=== PATIENT | male | born 1945 | race Caucasian/White ===

== ENCOUNTER → 2018-01-17 | Outpatient (CLI) | payer MEDICARE, OTHER ==
[2018-01-17 10:38] LABS: APPEARANCE,URINE CLEAR; BILIRUBIN,URINE NEGATIVE (NEGATIVE); COLOR,URINE STRAW; GLUCOSE, URINE NEGATIVE (NEGATIVE); KETONES,URINE NEGATIVE (NEGATIVE); LEUKOCYTE ESTERASE,URINE NEGATIVE (NEGATIVE); NITRITE,URINE NEGATIVE (NEGATIVE); PROTEIN,URINE NEGATIVE (NEGATIVE); URINE SPECIFIC GRAVITY 1.005; UROBILINOGEN,URINE NEGATIVE mg/dL (<2.0)
[2018-01-17 10:48] LABS: HEMATOCRIT 39.9 % (37.9-51.0); HEMOGLOBIN 13.3 g/dL (13.5-17.0); MEAN CORPUSCULAR HEMOGLOBIN 31.5 pg (27.0-33.4); MEAN CORPUSCULAR HGB CONC 33.3 g/dL (32.0-36.0); MEAN CORPUSCULAR VOLUME 95 fl (80-97); PLATELET COUNT 395 10^3/uL (150-450); RED BLOOD COUNT 4.21 10^6/uL (4.35-5.55); RED CELL DISTRIBUTION WIDTH 13.9 % (11.5-14.0); WHITE BLOOD COUNT 10.7 10^3/uL (4.0-10.5)
[2018-01-17 10:55] LABS: INTERNATIONAL RATION (INR) 1.21; PROTHROMBIN TIME 15.9 SEC (11.4-15.4)
[2018-01-17 11:09] LABS: ALANINE AMINOTRANSFERASE 23 U/L (21-72); ALBUMIN 4.4 g/dL (3.5-5.0); ALKALINE PHOSPHATASE 51 U/L (38-126); ANION GAP 14 (5-19); ASPARTATE AMINO TRANSFERASE 26 U/L (17-59); BILIRUBIN,DIRECT 0.4 mg/dL (0.0-0.4); BILIRUBIN,TOTAL 0.9 mg/dL (0.2-1.3); BLOOD UREA NITROGEN 20 mg/dL (7-20); CALCIUM 10.5 mg/dL (8.4-10.2); CARBON DIOXIDE 25 mmol/L (22-30); CHLORIDE 104 mmol/L (98-107); CHOLESTEROL 121.04 mg/dL (0-200); GLUCOSE 98 mg/dL (75-110); POTASSIUM 4.6 mmol/L (3.6-5.0); SODIUM 142.7 mmol/L (137-145); TOTAL PROTEIN 7.9 g/dL (6.3-8.2); TRIGLYCERIDES 92 mg/dL (<150)
[2018-01-17 11:20] LABS: DIRECT LDL 59 mg/dL (<100)
[2018-01-20 12:36] LABS: B-TYPE NATRIURETIC PEPTIDE 126.4 pg/mL (0.0-100.0)
== END ==
LOC: OD 09:08
PROVIDERS: ATTEND Internal Medicine Cardiovascular Disease
DX: I48.2 Chronic atrial fibrillation (principal); E78.5 Hyperlipidemia, unspecified; I50.9 Heart failure, unspecified; R06.02 Shortness of breath; Z79.01 Long term (current) use of anticoagulants; Z79.899 Other long term (current) drug therapy
CPT/HCPCS: 36415; 80048; 80061; 80076; 81001; 83735; 83880; 84443; 85027; 85610; 86141

== ENCOUNTER 2018-09-30 07:19 | Day surgery (SDC) | payer MEDICARE, OTHER ==
[~2018-09-30 07:19] MED LIST: KETOROLAC TROMETHAMINE 0.45% 4 DROP/0.4 ML DROPERETTE OD PRN; MIDAZOLAM 2 MG/2 ML INJ ONE
[2018-09-30] MEDS ORDERED: LIDOCAINE 1% INJ-PF (10 MG/ML) 30 ML SDV ONE (07:21)
[2018-09-30] MEDS: CYCLOPENTOLATE 0.2%/PHENYLEPHRINE 1% OPH SOLN 2 ML OD PRN ×3 (07:44→08:04)
[2018-09-30] MEDS: BESIFLOXACIN HCL 0.6% OPH SUSP 5 ML BOTTLE OD PRN ×5 (07:44→08:45)
[2018-09-30] MEDS: TROPICAMIDE 1% OPH SOLN 3 ML OD PRN ×3 (07:44→08:04)
[2018-09-30] MEDS: TETRACAINE HCL 0.5% OPH SOLN 4 ML OD PRN ×3 (07:45→08:25)
[2018-09-30] MEDS: LIDOCAINE 1%/PHENYLEPHRINE 1.5% 1 ML VIAL ONE ×2 (08:30→08:33)
[2018-09-30] MEDS: EPINEPHRINE INJ/PF 1 MG/1 ML AMPULE ONE ×2 (08:31→08:33)
[2018-09-30] MEDS: CHONDR SU A NA/HYALUR INTRAOC KIT (SURGICARE) ONE ×2 (08:31→08:33)
--- NOTE | 2018-10-01 08:32 | [facility] OPERATIVE REPORT E ---
[facility] Operative Report NAME: ANGELO JOSEPH AGE: 73Y DATE OF SURGERY: 09/30/2018 ROOM: PREOPERATIVE DIAGNOSIS: CATARACT, RIGHT EYE. POSTOPERATIVE DIAGNOSIS: CATARACT, RIGHT EYE. OPERATION: Cataract extraction with insertion of an IOL of the right eye. SURGEON: TROY MCDANIELS M.D. ANESTHESIA: Topical. PROCEDURE: After obtaining appropriate consent, the patient's right eye was prepped and draped in sterile fashion as well as the surgeon in a sterile manner and cataract surgery was started. First a paracentesis blade was used to make a side-port incision. Viscoelastic was used to inflate the anterior chamber. Next a 2.4 mm incision was made with a 2.4 mm blade, clear corneal temporally. A continuous capsulorrhexis was made using a cystotome and Utrata forceps. Following this hydrodissection was carried out to make the lens fully loose and mobile and it was rotated 90 degrees. Following this, a qexgmu-oxc-myomavy technique was used to phacoemulsify the lens with a CDE of 13.05. The remaining cortex was removed with irrigation/aspiration. Provisc was instilled into the capsular bag to inflate the bag. A SN60WF, 21.5 diopter lens was placed. The remaining viscoelastic material was removed with irrigation/aspiration. Following this, the incision was found to be watertight. Besivance was instilled into the eye and a protective shield was placed over the eye. The patient returned to the postoperative recovery in stable condition. PROCEDURE: @ DICTATING PHYSICIAN: TROY MCDANIELS M.D. [id number] PHY#: [id number] ID: [id number] JOB#: [id number] ACCT: [id number] cc:TROY MCDANIELS M.D. >
--- NOTE | 2018-10-01 08:32 | [facility] DISCHARGE SUMMARY E ---
[facility] Discharge Summary NAME: ANGELO JOSEPH AGE: 73Y ADMITTED: 09/30/2018 DISCHARGED: 09/30/2018 FINAL DIAGNOSIS: CATARACT, RIGHT EYE. HISTORY/CLINIC COURSE: This is a 73-year-old male who underwent cataract extraction of the right eye without complication, woke up in postoperative recovery in stable condition. He underwent surgery because he was having difficulty seeing small print. Patient is to be on a regular diet. No bending at the waist, no heavy lifting. Patient should use the Besivance, Ilevro, and Durezol at 3 p.m. and 8 p.m., and sleep with a rigid shield. I will see him for 1 day postoperative. DICTATING PHYSICIAN: TROY MCDANIELS M.D. [id number] PHY#: [id number] ID: [id number] JOB#: [id number] ACCT: [id number] cc:TROY MCDANIELS M.D. >
== END 2018-09-30 09:44 | disposition home or self-care (01) ==
LOC: SC 07:19
PROVIDERS: ATTEND Internal Medicine
DX: H25.813 Combined forms of age-related cataract, bilateral (principal); H57.03 Miosis; H43.813 Vitreous degeneration, bilateral; H35.3121 Nonexudative age-related macular degeneration, left eye, early dry stage; I10 Essential (primary) hypertension; E78.00 Pure hypercholesterolemia, unspecified; I48.91 Unspecified atrial fibrillation; Z86.73 Personal history of transient ischemic attack (TIA), and cerebral infarction without residual deficits; Z87.891 Personal history of nicotine dependence; Z79.82 Long term (current) use of aspirin; Z79.899 Other long term (current) drug therapy; Z79.01 Long term (current) use of anticoagulants
CPT/HCPCS: 66984; V2632; J2250; J3490 ×2; A9270; J0171; J2370; 142

== ENCOUNTER 2018-10-23 06:23 | Day surgery (SDC) | payer MEDICARE, OTHER ==
[~2018-10-23 06:23] MED LIST changes: +BUPIVACAINE HCL 0.75% INJ/PF (7.5 MG/1 ML) 10 ML SDV OS PRN; -KETOROLAC TROMETHAMINE 0.45% 4 DROP/0.4 ML DROPERETTE OD PRN; +KETOROLAC TROMETHAMINE 0.45% 4 DROP/0.4 ML DROPERETTE OS PRN; +LIDOCAINE 4% INJ/PF (40 MG/ML) 5 ML AMPUL OS PRN; -MIDAZOLAM 2 MG/2 ML INJ ONE
[2018-10-23] MEDS: TROPICAMIDE 1% OPH SOLN 3 ML OS PRN ×3 (06:46→07:16)
[2018-10-23] MEDS: CYCLOPENTOLATE 0.2%/PHENYLEPHRINE 1% OPH SOLN 2 ML OS PRN ×3 (06:46→07:16)
[2018-10-23] MEDS: BESIFLOXACIN HCL 0.6% OPH SUSP 5 ML BOTTLE OS PRN ×4 (06:47→07:56)
[2018-10-23] MEDS: TETRACAINE HCL 0.5% OPH SOLN 4 ML OS PRN ×3 (06:48→07:31)
[2018-10-23] MEDS ORDERED: LIDOCAINE 1% INJ-PF (10 MG/ML) 30 ML SDV ONE (07:06)
[2018-10-23] MEDS ORDERED: MIDAZOLAM 2 MG/2 ML INJ ONE (07:09)
[2018-10-23] MEDS ORDERED: FENTANYL CITRATE INJ/PF 100 MCG/2 ML AMPUL ONE (07:41)
[2018-10-23] MEDS: EPINEPHRINE INJ/PF 1 MG/1 ML AMPULE ONE ×2 (07:46)
[2018-10-23] MEDS: CHONDR SU A NA/HYALUR INTRAOC KIT (SURGICARE) ONE ×2 (07:46)
[2018-10-23] MEDS: LIDOCAINE 1%/PHENYLEPHRINE 1.5% 1 ML VIAL ONE ×2 (07:46)
[2018-10-23] MEDS: DORZOLAMIDE HCL 2%/TIMOLOL MALEAT 0.5% OPH SOLN 10 ML OS PRN ×2 (07:56)
--- NOTE | 2018-10-23 21:08 | [facility] OPERATIVE REPORT E ---
[facility] Operative Report NAME: ANGELO JOSEPH AGE: 73Y DATE OF SURGERY: 10/23/2018 ROOM: PREOPERATIVE DIAGNOSIS: CATARACT, LEFT EYE. POSTOPERATIVE DIAGNOSIS: CATARACT, LEFT EYE. OPERATION: Cataract extraction with insertion of an IOL of the left eye. SURGEON: TROY MCDANIELS M.D. ANESTHESIA: Topical. PROCEDURE: After obtaining appropriate consent, the patient's left eye was prepped and draped in sterile fashion as well as the surgeon in a sterile manner and cataract surgery was started. First a paracentesis blade was used to make a side-port incision. Viscoelastic was used to inflate the anterior chamber. Next a 2.4 mm incision was made with a 2.4 mm blade, clear corneal temporally. A continuous capsulorrhexis was made using a cystotome and Utrata forceps. Following this hydrodissection was carried out to make the lens fully loose and mobile and it was rotated 90 degrees. Following this, a naqhtr-qcp-oxawdxr technique was used to phacoemulsify the lens with a CDE of 9.06. The remaining cortex was removed with irrigation/aspiration. Provisc was instilled into the capsular bag to inflate the bag. A SN60WF, 21.5 diopter lens was placed. The remaining viscoelastic material was removed with irrigation/aspiration. Following this, the incision was found to be watertight. Besivance was instilled into the eye and a protective shield was placed over the eye. The patient returned to the postoperative recovery in stable condition. DICTATING PHYSICIAN: TROY MCDANIELS M.D. [id number] PHY#: [id number] ID: [id number] JOB#: [id number] ACCT: [id number] cc:TROY MCDANIELS M.D. >
--- NOTE | 2018-10-23 21:32 | [facility] DISCHARGE SUMMARY E ---
[facility] Discharge Summary NAME: ANGELO JOSEPH AGE: 73Y ADMITTED: 10/23/2018 DISCHARGED: HOSPITAL COURSE: This is a 73-year-old patient who underwent cataract extraction of the left eye. FINAL DIAGNOSIS: CATARACT, LEFT EYE. Patient underwent surgery because of having difficulty reading small print. DISCHARGE INSTRUCTIONS: He is to be on a regular diet. No bending at the waist, no heavy lifting. He is to use zymaxid, Durezol and Acular at 3 p.m. and 8 p.m., and sleep with a rigid shield. I will see him, for 1 day postoperative tomorrow. DICTATING PHYSICIAN: TROY MCDANIELS M.D. [id number] PHY#: [id number] ID: [id number] JOB#: [id number] ACCT: [id number] cc:TROY MCDANIELS M.D. > MTDD
== END 2018-10-23 08:37 | disposition home or self-care (01) ==
LOC: SC 06:23
PROVIDERS: ATTEND Internal Medicine
DX: H25.812 Combined forms of age-related cataract, left eye (principal); H57.03 Miosis; Z96.1 Presence of intraocular lens; I10 Essential (primary) hypertension; F17.210 Nicotine dependence, cigarettes, uncomplicated; I48.91 Unspecified atrial fibrillation; Z86.73 Personal history of transient ischemic attack (TIA), and cerebral infarction without residual deficits; Z79.899 Other long term (current) drug therapy; Z79.01 Long term (current) use of anticoagulants; Z79.82 Long term (current) use of aspirin
CPT/HCPCS: 66984; V2632; J2250; J3490 ×2; A9270; J0171; J3010; J2370; 142

== ENCOUNTER 2019-09-02 16:44 | Inpatient (IN) | payer MEDICARE, OTHER ==
[2019-09-02 17:00] LABS: HEMATOCRIT 43.2 % (37.9-51.0); HEMOGLOBIN 14.4 g/dL (13.5-17.0); MEAN CORPUSCULAR HEMOGLOBIN 31.6 pg (27.0-33.4); MEAN CORPUSCULAR HGB CONC 33.4 g/dL (32.0-36.0); MEAN CORPUSCULAR VOLUME 95 fl (80-97); PLATELET COUNT 321 10^3/uL (150-450); RED BLOOD COUNT 4.56 10^6/uL (4.35-5.55); RED CELL DISTRIBUTION WIDTH 12.7 % (11.5-14.0); WHITE BLOOD COUNT 22.1 10^3/uL (4.0-10.5)
[2019-09-02 17:20] LABS: ABSOLUTE LYMPHOCYTES# (MANUAL) 0.9 10^3/uL (0.5-4.7); BASOPHILS % (MANUAL) 0 % (0-2); EOSINOPHILS % (MANUAL) 1 % (0-6); LYMPHOCYTES % (MANUAL) 4 % (13-45); MONOCYTES % (MANUAL) 9 % (3-13); SEGMENTED NEUTROPHILS % (MAN) 86 % (42-78); TOTAL CELLS COUNTED 100
[2019-09-02 17:21] LABS: PLATELET COMMENT ADEQUATE
--- NOTE | 2019-09-02 17:28 | ER Document Report ---
ED Cardiac - General Stated Complaint: CHEST PAIN Time Seen by Provider: 09/02/19 17:14 Primary Care Provider: SHANE GUNN MD [Primary Care Provider] - Follow up as needed Mode of Arrival: Medic Information source: Patient TRAVEL OUTSIDE OF THE [place] IN LAST 30 DAYS: No - HPI Patient complains to provider of: Chest pain, Other - States he feels like he has been beat in his chest with a baseball Was the onset of pain: Gradual Is the pain a: New problem Chest pain location: Substernal Quality of pain: Throbbing Chest pain radiation location: None Severity now: Severe Severity at worst: Severe Chest pain precipitating factors: Patient states he slept well last evening got up this morning in his normal usual state. Patient's chest pain started around noon today while at rest. Denies any palpitations nausea vomiting or sweats he states the pain is stayed right in the center of his chest nonradiating. Patient states he drove to some location and back and by the time he gets got back home his pain was still present so at 3:00 he called the EMS 911 at that time he took 4 baby aspirin's and waited for EMS arrival. EMS noted that his heart rate was in rapid A. fib at the time. Patient was given diltiazem in route. Patient's heart rate is now controlled less than 100 with a A. fib still present. No acute ST changes consistent with any acute STEMI at this time. Associated symptoms: None Exacerbated by: Other - There are no exacerbating signs or symptoms at this time. Relieved by: NTG, Other - Nitroglycerin given by EMS x2 was of some benefit but did not take away his pain completely. Patient states his current pain is 7 out of 10 - Related Data Allergies/Adverse Reactions: No Known Allergies Allergy (Verified 09/30/18 07:46) Past Medical History - Social History Smoking Status: Former Smoker Family History: Reviewed & Not Pertinent - Past Medical History Cardiac Medical History: Reports: Hx Atrial Fibrillation, Hx Hypercholesterolemia, Hx Hypertension Denies: Hx Heart Attack Pulmonary Medical History: Denies: Hx Asthma Neurological Medical History: Denies: Hx Cerebrovascular Accident - SMALL ANEURYSM ON AORTA,MONITOR IT ONCE A YEAR, Hx Seizures GI Medical History: Denies: Hx Hepatitis, Hx Hiatal Hernia, Hx Ulcer Infectious Medical History: Denies: Hx Hepatitis Past Surgical History: Reports: Hx Vascular Surgery - bilat leg stents. Denies: Hx Open Heart Surgery, Hx Pacemaker - Immunizations Hx Diphtheria, Pertussis, Tetanus Vaccination: Yes Physical Exam - Vital signs Vitals: Temp Pulse Resp BP Pulse Ox 98.7 F 98 30 H 143/79 H 98 09/02/19 16:44 09/02/19 16:44 09/02/19 16:44 09/02/19 16:44 09/02/19 16:44 Course - Re-evaluation Re-evalutation: 09/02/19 23:38 Patient reports his chest discomfort is down to a 2 out of 10. - Vital Signs Vital signs: Temp Pulse Resp BP Pulse Ox 98.2 F 98 26 H 158/86 H 97 09/02/19 21:28 09/02/19 16:44 09/02/19 20:30 09/02/19 20:16 09/02/19 20:30 - Laboratory Result Diagrams: 09/02/19 16:05 09/02/19 16:05 Laboratory results interpreted by me: 09/02/19 09/02/19 09/02/19 16:05 16:05 16:05 WBC 22.1 H Seg Neuts % (Manual) 86 H Lymphocytes % (Manual) 4 L Abs Neuts (Manual) 19.0 H Abs Monocytes (Manual) 2.0 H PT Carbon Dioxide 20 L Anion Gap 20 H BUN 26 H Creatinine 1.70 H Est GFR ( Amer) 48 L Est GFR (MDRD) Non-Af 39 L Glucose 191 H Calcium 10.8 H Direct Bilirubin 0.5 H NT-Pro-B Natriuret Pep 498 H Total Protein 9.8 H Albumin 5.3 H Urine Protein Urine Glucose (UA) Urine Ketones Urine Urobilinogen 09/02/19 09/02/19 16:05 20:53 WBC Seg Neuts % (Manual) Lymphocytes % (Manual) Abs Neuts (Manual) Abs Monocytes (Manual) PT 20.0 H Carbon Dioxide Anion Gap BUN Creatinine Est GFR ( Amer) Est GFR (MDRD) Non-Af Glucose Calcium Direct Bilirubin NT-Pro-B Natriuret Pep Total Protein Albumin Urine Protein 30 H Urine Glucose (UA) 50 H Urine Ketones TRACE H Urine Urobilinogen 2.0 H Discharge - Discharge Clinical Impression: Chest pain Qualifiers: Chest pain type: unspecified Qualified Code(s): R07.9 - Chest pain, unspecified COPD (chronic obstructive pulmonary disease) Qualifiers: COPD type: emphysema Disposition: ADMITTED INPATIENT Admitting Provider: Shanice (Hospitalist) Unit Admitted: Telemetry Referrals: SHANE GUNN MD [Primary Care Provider] - Follow up as needed
--- NOTE | 2019-09-02 17:29 | RADIOLOGY REPORT (SQ) ---
EXAM DESCRIPTION: CHEST SINGLE VIEW COMPLETED DATE/TIME: 09/02/2019 5:13 pm REASON FOR STUDY: chest pain COMPARISON: 11/29/2013 EXAM PARAMETERS: NUMBER OF VIEWS: One view. TECHNIQUE: Single frontal radiographic view of the chest acquired. RADIATION DOSE: NA LIMITATIONS: None. FINDINGS: LUNGS AND PLEURA: No opacities, masses or pneumothorax. No pleural effusion. MEDIASTINUM AND HILAR STRUCTURES: No masses. Contour normal. HEART AND VASCULAR STRUCTURES: Mild cardiomegaly, stable BONES: No acute findings. HARDWARE: None in the chest. OTHER: No other significant finding. IMPRESSION: NO ACUTE RADIOGRAPHIC FINDING IN THE CHEST. TECHNICAL DOCUMENTATION: JOB ID: [id number] [employer]- All Rights Reserved Reading location - IP/workstation name: [email or web address]
[2019-09-02] MEDS ORDERED: ONDANSETRON HCL INJ/PF 4 MG/2 ML SDV IV ONE (17:30)
[2019-09-02] MEDS ORDERED: METOPROLOL TARTRATE PF/INJ 5 MG/5 ML SDV IV ONE (17:33)
[2019-09-02] MEDS: MORPHINE SULFATE 10 MG/ML INJ IV PRN ×2 (17:36→22:36)
--- NOTE | 2019-09-02 17:38 | EKG REPORT ---
SEVERITY:- ABNORMAL ECG - ATRIAL FIBRILLATION, V-RATE 69-117 POOR R WAVE PROGRESSION ANTERIOR PRECORDIAL LEADS : Confirmed by: Rex Lopez MD 02-Sep-2019 17:38:05
[2019-09-02 18:57] LABS: ALBUMIN 5.3 g/dL (3.5-5.0); ALKALINE PHOSPHATASE 68 U/L (38-126); ASPARTATE AMINO TRANSFERASE 47 U/L (17-59); BILIRUBIN,DIRECT 0.5 mg/dL (0.0-0.4); BLOOD UREA NITROGEN 26 mg/dL (7-20); CALCIUM 10.8 mg/dL (8.4-10.2); CREATINE KINASE 147 U/L (55-170); GLUCOSE 191 mg/dL (75-110); POTASSIUM 4.3 mmol/L (3.6-5.0); TOTAL PROTEIN 9.8 g/dL (6.3-8.2)
[2019-09-02 19:02] LABS: CARBON DIOXIDE 20 mmol/L (22-30); CHLORIDE 100 mmol/L (98-107)
[2019-09-02 19:09] LABS: CREATINE KINASE MB 2.66 ng/mL (<4.55)
[2019-09-02 19:10] LABS: ANION GAP 20 (5-19); TROPONIN I < 0.012 ng/mL
--- NOTE | 2019-09-02 20:39 | EKG REPORT ---
SEVERITY:- ABNORMAL ECG - ATRIAL FIBRILLATION, V-RATE 68-102 POOR R WAVE PROGRESSION V1-V5. NONSPECIFIC LATERAL ST-T CHANGES : Confirmed by: Rex Lopez MD 02-Sep-2019 20:38:58
[2019-09-02] MEDS ORDERED: CEFTRIAXONE INJ 1000 MG VIAL IV ONE (20:45)
[2019-09-02] MEDS ORDERED: NITROGLYCERIN 5 MG (0.2 MG/HR) PATCH.TD24 TD ONE (20:50)
[2019-09-02] MEDS ORDERED: FUROSEMIDE INJ/PF 20 MG/2 ML SDV IV ONE (20:50)
[2019-09-02] MEDS ORDERED: ALBUTEROL SULFATE HFA (90 MCG/PUFF) 200 PUFF/8.5 GM MDI IH ONE (20:51)
[2019-09-02 21:05] LABS: A TYPE INFLUENZA AG NEGATIVE (NEGATIVE); B INFLUENZA AG NEGATIVE (NEGATIVE)
[2019-09-02 21:20] LABS: APPEARANCE,URINE SLIGHTLY-CLOUDY; BILIRUBIN,URINE NEGATIVE (NEGATIVE); COLOR,URINE YELLOW; GLUCOSE, URINE 50 mg/dL (NEGATIVE); KETONES,URINE TRACE mg/dL (NEGATIVE); LEUKOCYTE ESTERASE,URINE NEGATIVE (NEGATIVE); NITRITE,URINE NEGATIVE (NEGATIVE); PROTEIN,URINE 30 mg/dL (NEGATIVE); URINE SPECIFIC GRAVITY 1.021
[2019-09-02] MEDS ORDERED: DILTIAZEM HCL 60 MG TABLET PO ONE (22:01)
[2019-09-02] MEDS ORDERED: MAG HYDROX/AL HYDROX/SIMETH SUSP 30 ML UDCUP PO PRN (22:41)
[2019-09-02] MEDS ORDERED: MAGNESIUM HYDROXIDE SUSP 30 ML UDCUP PO PRN (22:41)
[2019-09-02] MEDS ORDERED: PROMETHAZINE HCL INJ 25 MG/1 ML VIAL IV PRN (22:41)
[2019-09-02] MEDS ORDERED: ACETAMINOPHEN 325 MG TABLET PO PRN (22:46)
[2019-09-02] MEDS ORDERED: MORPHINE SULFATE 10 MG/ML INJ IV PRN ×3 (22:46)
[2019-09-02 23:08] LABS: INTERNATIONAL RATION (INR) 1.68
[2019-09-02] MEDS ORDERED: PANTOPRAZOLE SODIUM 40 MG VIAL IV ONE (23:15)
[2019-09-03] MEDS: NITROGLYCERIN 2% OINTMENT 1 GM PACKET TP SCH ×4 (00:28→17:48)
[2019-09-03] MEDS: LEVALBUTEROL HCL NEB 0.63 MG/3 ML AMPUL NEB PRN ×3 (01:21→22:21)
[2019-09-03 03:26] LABS: CREATINE KINASE MB 1.95 ng/mL (<4.55)
[2019-09-03 03:30] LABS: TROPONIN I < 0.012 ng/mL
--- NOTE | 2019-09-03 04:48 | PDOC H&P ---
History of Present Illness Admission Date/PCP: 09/02/2019 22:59 SHANE GUNN MD Patient complains of: Chest pain History of Present Illness: ANGELO JOSEPH is a 74 year old male who presented to the emergency room via EMS with acute chest pain. He admits to the sudden onset of severe pain in his central (substernal) chest beginning at noon today while at rest and continuing since that time. The pain is a severe sharp continuous throbbing pressure without radiation. He denies associated or accompanying signs and symptoms. He denies prior similar episodes. He has not identified any aggravating or ameliorating factors for his chest pain. In the emergency room he was found to have an EKG and cardiac enzymes which demonstrated no evidence of acute myocardial ischemia or injury. His chest pain was treated with nitroglycerin and morphine. He was subsequently admitted for further evaluation and treatment on observation status. Past Medical History Cardiac Medical History: Reports: Atrial Fibrillation, Hyperlipidema, Hypertension, Peripheral Vascular Disease, Other - Aortic aneurysm Denies: Myocardial Infarction Pulmonary Medical History: Denies: Asthma, Chronic Obstructive Pulmonary Disease (COPD) EENT Medical History: Denies: Cataracts, Ears - Hearing aids Neurological Medical History: Denies: Hemorrhagic CVA, Ischemic CVA, Seizures Endocrine Medical History: Denies: Diabetes Mellitus Type 1, Diabetes Mellitus Type 2, Hyperthyroidism, Hypothyroidism Renal/ Medical History: Denies: Chronic Kidney Disease, Nephrolithiasis Malignancy Medical History: Reports: None GI Medical History: Denies: Cirrhosis, Crohn's Disease, Gastroesophageal Reflux Disease, Hepatitis, Hiatal Hernia, Peptic Ulcer Disease, Ulcerative Colitis Musculoskeltal Medical History: Denies: Arthritis, Gout Skin Medical History: Denies: Eczema, Psoriasis Psychiatric Medical History: Denies: Alcohol Dependency, Substance Abuse, Tobacco Dependency Traumatic Medical History: Reports: None Hematology: Denies: Anemia, Bleeding Tendencies Infectious Medical History: Reports: None Past Surgical History Past Surgical History: Reports: Vascular Surgery - bilat leg stents Social History Information Source: Patient Lives with: Alone Smoking Status: Former Smoker Electronic Cigarette use?: No Frequency of Alcohol Use: Rare Hx Recreational Drug Use: No Drugs: None Hx Prescription Drug Abuse: No - Advance Directive Resuscitation Status: Full Code Surrogate healthcare decision maker:: Marleen Saldivar Family History Family History: DM, Hypertension. denies: CAD, Malignancy Parental Family History Reviewed: Yes Children Family History Reviewed: No Sibling(s) Family History Reviewed.: Yes Medication/Allergy Home Medications: Amlodipine Besylate [Norvasc 10 mg Tablet] 10 mg PO DAILY 09/02/19 Aspirin [Aspirin 81 mg Chewable Tablet] 81 mg PO DAILY 09/02/19 Atorvastatin Calcium [Lipitor 40 mg Tablet] 40 mg PO DAILY 09/02/19 Fenofibrate Nanocrystallized [Tricor 145 mg Tablet] 145 mg PO DAILY 09/02/19 Telmisartan 80 mg PO DAILY 09/02/19 Warfarin Sodium [Coumadin 2 mg Tablet] 1.25 mg PO DAILY 09/02/19 Allergies/Adverse Reactions: No Known Allergies Allergy (Verified 09/30/18 07:46) Review of Systems Constitutional: ABSENT: chills, fever(s) Eyes: ABSENT: visual disturbances, other - Eye pain Ears: ABSENT: hearing changes, other - Ear pain Nose, Mouth, and Throat: ABSENT: headache(s), mouth pain, sore throat Cardiovascular: PRESENT: as per HPI, chest pain. ABSENT: dyspnea on exertion, edema, orthropnea, palpitations Respiratory: ABSENT: cough, dyspnea Gastrointestinal: ABSENT: abdominal pain, constipation, diarrhea, nausea, vomiting Genitourinary: ABSENT: dysuria, hematuria Musculoskeletal: ABSENT: back pain, joint swelling, muscle weakness Integumentary: ABSENT: pruritus, rash Neurological: ABSENT: confusion, convulsions, focal weakness, memory loss, syncope Psychiatric: ABSENT: anxiety, depression Endocrine: ABSENT: cold intolerance, heat intolerance Hematologic/Lymphatic: ABSENT: easy bleeding, easy bruising Allergic/Immunologic: ABSENT: seasonal rhinorrhea Physical Exam Vital Signs: Temp Pulse Resp BP Pulse Ox 98.2 F 98 26 H 158/86 H 97 09/02/19 21:28 09/02/19 16:44 09/02/19 20:30 09/02/19 20:16 09/02/19 20:30 Intake & Output 08/31/19 09/01/19 09/02/19 23:59 23:59 23:59 Weight 88.904 kg General appearance: PRESENT: cooperative, mild distress - Secondary to chest discomfort Head exam: PRESENT: atraumatic, normocephalic Eye exam: PRESENT: conjunctiva pink. ABSENT: conjunctival injection, scleral icterus Ear exam: PRESENT: normal external ear exam. ABSENT: bleeding, drainage Mouth exam: PRESENT: dry mucosa, neck supple Neck exam: ABSENT: thyromegaly, tracheal deviation Respiratory exam: PRESENT: clear to auscultation rayo, symmetrical, unlabored Cardiovascular exam: PRESENT: irregular rhythm - Irregularly irregular rate and rhythm. ABSENT: clicks, gallop, rubs Pulses: PRESENT: normal radial pulses, normal dorsalis pedis pul Vascular exam: PRESENT: normal capillary refill. ABSENT: pallor GI/Abdominal exam: PRESENT: normal bowel sounds, soft. ABSENT: tenderness Rectal exam: PRESENT: deferred Extremities exam: ABSENT: joint swelling, pedal edema Musculoskeletal exam: ABSENT: deformity, dislocation Neurological exam: PRESENT: alert, oriented to person, oriented to place, oriented to time, oriented to situation, CN II-XII grossly intact. ABSENT: motor sensory deficit Psychiatric exam: PRESENT: appropriate affect, normal mood Skin exam: PRESENT: dry, intact, warm. ABSENT: jaundice, rash, urticaria Results Laboratory Results: 09/02/19 16:05 09/02/19 16:05 09/02/19 09/02/19 09/02/19 16:05 16:05 20:53 WBC 22.1 H RBC 4.56 Hgb 14.4 Hct 43.2 MCV 95 MCH 31.6 MCHC 33.4 RDW 12.7 Plt Count 321 Seg Neutrophils % Not Reportable Sodium 140.3 Potassium 4.3 Chloride 100 Carbon Dioxide 20 L Anion Gap 20 H BUN 26 H Creatinine 1.70 H Est GFR ( Amer) 48 L Glucose 191 H Calcium 10.8 H Total Bilirubin 1.0 AST 47 Alkaline Phosphatase 68 Total Protein 9.8 H Albumin 5.3 H Urine Color YELLOW Urine Appearance SLIGHTLY-CLOUDY Urine pH 5.0 Ur Specific [place] 1.021 Urine Protein 30 H Urine Glucose (UA) 50 H Urine Ketones TRACE H Urine Blood NEGATIVE Urine Nitrite NEGATIVE Ur Leukocyte Esterase NEGATIVE Urine WBC (Auto) 1 Urine RBC (Auto) 0 09/02/19 09/02/19 09/02/19 16:05 16:05 16:05 Creatine Kinase 147 CK-MB (CK-2) 2.66 Troponin I < 0.012 NT-Pro-B Natriuret Pep 498 H 09/02/19 20:25 Creatine Kinase CK-MB (CK-2) Troponin I < 0.012 NT-Pro-B Natriuret Pep Impressions: Chest X-Ray 09/02/19 16:46 IMPRESSION: NO ACUTE RADIOGRAPHIC FINDING IN THE CHEST. Assessment and Plan - Diagnosis (1) Chest pain Qualifiers: Chest pain type: unspecified Qualified Code(s): R07.9 - Chest pain, unspecified Is this a current diagnosis for this admission?: Yes (2) Chronic atrial fibrillation Is this a current diagnosis for this admission?: Yes (3) Chronic anticoagulation Is this a current diagnosis for this admission?: Yes (4) Hypertension Qualifiers: Hypertension type: essential hypertension Qualified Code(s): I10 - Essential (primary) hypertension Is this a current diagnosis for this admission?: Yes (5) Peripheral vascular disease Is this a current diagnosis for this admission?: Yes - Plan Summary Summary: Patient is admitted observation status on telemetry bed where he will receive routine supportive and symptomatic treatment. Serial cardiac enzymes will be obtained and a Cardiolite stress test will be ordered for the morning. Patient's chest pain will be treated with morphine sulfate 2 to 4 mg IV every 2 hours as needed using a sliding scale for pain. He will also receive Nitrol 2% ointment 1 g every 6 hours. Consideration for initiating metoprolol with an IV dosing regiment will be given if needed to control heart rate, blood pressure or pain. Patient will be continued on his usual medications for his chronic medical illnesses where possible and appropriate. He will be instructed to follow-up with Dr. Gunn for further care and evaluation as an outpatient. - Time Time Spent with patient: 25-34 minutes Medications reviewed and adjusted accordingly: Yes Anticipated discharge: Home Within: within 48 hours - Inpatient Certification Based on my medical assessment, after consideration of the patient's comorbidities, presenting symptoms, or acuity I expect that the services needed warrant INPATIENT care.: No I certify that my determination is in accordance with my understanding of Medicare's requirements for reasonable and necessary INPATIENT services [42 CFR 412.3e].: No Medical Necessity: Need For Continuous Telemetry Monitoring, Need for Pain Contr ol, Risk of Complication if Not Cared For in Hospital
[2019-09-03 09:48] LABS: CREATINE KINASE MB 2.67 ng/mL (<4.55)
[2019-09-03 09:57] LABS: TROPONIN I < 0.012 ng/mL
[2019-09-03] MEDS: DOCUSATE SODIUM 100 MG CAPSULE PO SCH ×2 (10:51→17:54)
[2019-09-03] MEDS: PANTOPRAZOLE SODIUM 40 MG VIAL IV SCH ×2 (10:54→22:06)
[2019-09-03 16:00] LABS: TROPONIN I < 0.012 ng/mL
--- NOTE | 2019-09-03 16:28 | PDOC PROGRESS REPORT ---
Subjective Progress Note for:: 09/03/19 Subjective:: The patient appears surprisingly asymptomatic given his elevated white blood cell count and MRSA bacteremia. His breathing is comfortable. Reason For Visit: CHEST PAIN,CHRONIC ATRIAL FIBRILATION, Physical Exam Vital Signs: Temp Pulse Resp BP Pulse Ox 98.0 F 90 20 164/70 H 93 09/03/19 11:36 09/03/19 11:36 09/03/19 11:36 09/03/19 11:36 09/03/19 11:36 Intake & Output 09/02/19 09/03/19 09/04/19 06:59 06:59 06:59 Intake Total 0 120 Output Total 0 Balance 0 120 Weight 83.9 kg General appearance: PRESENT: no acute distress, cooperative, well-developed Head exam: PRESENT: atraumatic, normocephalic Eye exam: PRESENT: conjunctiva pink. ABSENT: scleral icterus Ear exam: PRESENT: normal external ear exam. ABSENT: bleeding, drainage Mouth exam: PRESENT: dry mucosa, tongue midline Teeth exam: PRESENT: poor dentation Respiratory exam: PRESENT: clear to auscultation rayo, symmetrical, unlabored. ABSENT: rales, rhonchi, tachypnea, wheezes Cardiovascular exam: PRESENT: irregular rhythm GI/Abdominal exam: PRESENT: normal bowel sounds, soft. ABSENT: distended, tenderness Extremities exam: ABSENT: pedal edema Musculoskeletal exam: PRESENT: ambulatory, normal inspection. ABSENT: deformity Neurological exam: PRESENT: alert, awake, oriented to person, oriented to place, oriented to time, oriented to situation, CN II-XII grossly intact Psychiatric exam: PRESENT: appropriate affect. ABSENT: agitated, anxious Focused psych exam: ABSENT: delusional, restlessness Skin exam: PRESENT: dry, normal color, warm. ABSENT: rash Results Laboratory Results: 09/02/19 16:05 09/02/19 16:05 09/02/19 09/02/19 09/02/19 16:05 16:05 20:53 WBC 22.1 H RBC 4.56 Hgb 14.4 Hct 43.2 MCV 95 MCH 31.6 MCHC 33.4 RDW 12.7 Plt Count 321 Seg Neutrophils % Not Reportable Sodium 140.3 Potassium 4.3 Chloride 100 Carbon Dioxide 20 L Anion Gap 20 H BUN 26 H Creatinine 1.70 H Est GFR ( Amer) 48 L Glucose 191 H Calcium 10.8 H Magnesium Total Bilirubin 1.0 AST 47 Alkaline Phosphatase 68 Total Protein 9.8 H Albumin 5.3 H Urine Color YELLOW Urine Appearance SLIGHTLY-CLOUDY Urine pH 5.0 Ur Specific [place] 1.021 Urine Protein 30 H Urine Glucose (UA) 50 H Urine Ketones TRACE H Urine Blood NEGATIVE Urine Nitrite NEGATIVE Ur Leukocyte Esterase NEGATIVE Urine WBC (Auto) 1 Urine RBC (Auto) 0 09/03/19 02:44 WBC RBC Hgb Hct MCV MCH MCHC RDW Plt Count Seg Neutrophils % Sodium Potassium Chloride Carbon Dioxide Anion Gap BUN Creatinine Est GFR ( Amer) Glucose Calcium Magnesium 1.7 Total Bilirubin AST Alkaline Phosphatase Total Protein Albumin Urine Color Urine Appearance Urine pH Ur Specific [place] Urine Protein Urine Glucose (UA) Urine Ketones Urine Blood Urine Nitrite Ur Leukocyte Esterase Urine WBC (Auto) Urine RBC (Auto) 09/02/19 20:25 Blood Blood Culture (PCR) - Final Staphylococcus Aureus 09/02/19 09/02/19 09/02/19 16:05 16:05 16:05 Creatine Kinase 147 CK-MB (CK-2) 2.66 Troponin I < 0.012 NT-Pro-B Natriuret Pep 498 H 09/02/19 09/03/19 09/03/19 20:25 02:44 02:44 Creatine Kinase 113 CK-MB (CK-2) 1.95 Troponin I < 0.012 < 0.012 NT-Pro-B Natriuret Pep 09/03/19 09/03/19 09/03/19 08:44 08:44 15:15 Creatine Kinase 161 243 H CK-MB (CK-2) 2.67 Troponin I < 0.012 NT-Pro-B Natriuret Pep 09/03/19 15:15 Creatine Kinase CK-MB (CK-2) 3.90 Troponin I < 0.012 NT-Pro-B Natriuret Pep Impressions: Chest X-Ray 09/02/19 16:46 IMPRESSION: NO ACUTE RADIOGRAPHIC FINDING IN THE CHEST. Assessment and Plan - Diagnosis (1) Chest pain Qualifiers: Chest pain type: unspecified Qualified Code(s): R07.9 - Chest pain, unspecified Is this a current diagnosis for this admission?: Yes Plan: 09/03/2019-the patient states that he is pain-free. We discussed the symptoms. He did not feel it was particularly pleuritic. It was sharp and severe yesterday but not today. We will continue his baseline cardiac medications at this time. It is most likely that chest pain is musculoskeletal. (2) Chronic atrial fibrillation Is this a current diagnosis for this admission?: Yes Plan: 09/03/2019-continue current regimen. His heart rate has been under reasonable control. Continue anticoagulation. (3) Chronic anticoagulation Is this a current diagnosis for this admission?: Yes Plan: 09/03/2019-continue warfarin with target INR 2.0-3.0 (4) Hypertension Qualifiers: Hypertension type: essential hypertension Qualified Code(s): I10 - Esse ntial (primary) hypertension Is this a current diagnosis for this admission?: Yes Plan: 09/03/2019-the patient blood pressures have been elevated. He is currently on amlodipine, losartan and Cardizem. He still occasionally has elevated blood pressure. I will consolidate the diltiazem to extended release dosing and he may need adjustments in his other medications. (5) COPD (chronic obstructive pulmonary disease) Qualifiers: COPD type: emphysema Emphysema type: unspecified Qualified Code(s): J43.9 - Emphysema, unspecified Is this a current diagnosis for this admission?: Yes Plan: 09/03/2019-the breathing is quite comfortable. We did discuss the susceptibility to respiratory infection for patients with COPD. Other than his white blood cell count there is no focal evidence for pneumonia at this time. Will monitor closely. (6) MRSA bacteremia Is this a current diagnosis for this admission?: Yes Plan: 09/03/2019-the laboratory notified me that the patient did have a blood culture positive for methicillin-resistant staph aureus. He will be started on vancomycin. - Plan Summary Summary: Patient is admitted observation status on telemetry bed where he will receive routine supportive and symptomatic treatment. Serial cardiac enzymes will be obtained and a Cardiolite stress test will be ordered for the morning. Patient's chest pain will be treated with morphine sulfate 2 to 4 mg IV every 2 hours as needed using a sliding scale for pain. He will also receive Nitrol 2% ointment 1 g every 6 hours. Consideration for initiating metoprolol with an IV dosing regiment will be given if needed to control heart rate, blood pressure or pain. Patient will be continued on his usual medications for his chronic medical illnesses where possible and appropriate. He will be instructed to follow-up with Dr. Carey for further care and evaluation as an outpatient. - Time Time Spent with patient: 15-24 minutes Medications reviewed and adjusted accordingly: Yes Anticipated discharge: Home
[2019-09-03] MEDS: DILTIAZEM HCL 60 MG TABLET PO SCH (17:48)
[2019-09-03 19:46] LABS: HEMATOCRIT 36.6 % (37.9-51.0); MEAN CORPUSCULAR HEMOGLOBIN 31.7 pg (27.0-33.4); MEAN CORPUSCULAR HGB CONC 33.4 g/dL (32.0-36.0); MEAN CORPUSCULAR VOLUME 95 fl (80-97); PLATELET COUNT 249 10^3/uL (150-450); RED BLOOD COUNT 3.86 10^6/uL (4.35-5.55); RED CELL DISTRIBUTION WIDTH 12.9 % (11.5-14.0); WHITE BLOOD COUNT 20.1 10^3/uL (4.0-10.5)
[2019-09-03 19:50] LABS: HEMOGLOBIN 12.2 g/dL (13.5-17.0)
[2019-09-03] MEDS: WARFARIN SODIUM 2.5 MG TABLET PO SCH (22:06)
[2019-09-04] MEDS: DILTIAZEM HCL 60 MG TABLET PO SCH ×5 (00:01→23:43)
[2019-09-04 03:22] LABS: APPEARANCE,URINE CLEAR; BILIRUBIN,URINE NEGATIVE (NEGATIVE); COLOR,URINE YELLOW; GLUCOSE, URINE NEGATIVE (NEGATIVE); KETONES,URINE NEGATIVE (NEGATIVE); LEUKOCYTE ESTERASE,URINE NEGATIVE (NEGATIVE); NITRITE,URINE NEGATIVE (NEGATIVE); PROTEIN,URINE NEGATIVE (NEGATIVE); URINE SPECIFIC GRAVITY 1.018; UROBILINOGEN,URINE NEGATIVE mg/dL (<2.0)
[2019-09-04] MEDS: NITROGLYCERIN 2% OINTMENT 1 GM PACKET TP SCH ×4 (05:38→17:19)
[2019-09-04] MEDS: LEVALBUTEROL HCL NEB 0.63 MG/3 ML AMPUL NEB PRN ×2 (06:08→10:22)
[2019-09-04 06:11] LABS: INTERNATIONAL RATION (INR) 1.73; PROTHROMBIN TIME 20.5 SEC (11.4-15.4)
[2019-09-04] MEDS ORDERED: VANCOMYCIN HCL 0 MG in DEXTROSE 5%-WATER 250 ML IV NR (09:00)
[2019-09-04] MEDS: ASPIRIN 81 MG TABLET, CHEWABLE PO SCH (09:55)
[2019-09-04] MEDS: DOCUSATE SODIUM 100 MG CAPSULE PO SCH ×2 (09:55→17:06)
[2019-09-04] MEDS: AMLODIPINE BESYLATE 10 MG TABLET PO SCH (09:55)
[2019-09-04] MEDS: ATORVASTATIN CALCIUM 40 MG TABLET PO SCH (09:55)
[2019-09-04] MEDS: PANTOPRAZOLE SODIUM 40 MG VIAL IV SCH ×2 (09:56→21:42)
[2019-09-04] MEDS: FENOFIBRATE NANOCRYSTALLIZED 145 MG TABLET PO SCH (09:56)
[2019-09-04] MEDS: LOSARTAN POTASSIUM 50 MG TABLET PO SCH (09:56)
[2019-09-04] MEDS: CEFTRIAXONE 2 GM/D5W RTU 2 GM/50 ML RTUPB IV SCH (09:56)
[2019-09-04] MEDS ORDERED: VANCOMYCIN HCL 1,500 MG in DEXTROSE 5%-WATER 250 ML IV ONE (10:00)
[2019-09-04] MEDS ORDERED: WARFARIN SODIUM PO SCH (10:00)
--- NOTE | 2019-09-04 16:14 | PDOC PROGRESS REPORT ---
Subjective Progress Note for:: 09/04/19 Subjective:: Patient appears flushed. He is very wheezy. Increased coughing with no sputum production. Today he appears as sick as I would have expected with yesterday's lab results. Reason For Visit: MRSA BLOOD CULTURES Physical Exam Vital Signs: Temp Pulse Resp BP Pulse Ox 98.1 F 91 22 H 143/75 H 93 09/04/19 11:10 09/04/19 14:00 09/04/19 11:10 09/04/19 11:10 09/04/19 11:10 Intake & Output 09/03/19 09/04/19 09/05/19 06:59 06:59 06:59 Intake Total 0 960 300 Output Total 0 Balance 0 960 300 Weight 83.9 kg 83 kg General appearance: PRESENT: cooperative, mild distress, well-developed Head exam: PRESENT: atraumatic, normocephalic Eye exam: PRESENT: conjunctiva pink. ABSENT: scleral icterus Ear exam: PRESENT: normal external ear exam. ABSENT: bleeding, drainage Teeth exam: PRESENT: poor dentation Respiratory exam: PRESENT: prolonged expiratory phas, rhonchi, symmetrical, tachypnea, wheezes - Bilateral, other - Increased work of breathing. ABSENT: rales Cardiovascular exam: PRESENT: RRR, +S1, +S2 GI/Abdominal exam: PRESENT: normal bowel sounds, soft. ABSENT: distended, guarding, tenderness Rectal exam: PRESENT: deferred Extremities exam: ABSENT: pedal edema Musculoskeletal exam: PRESENT: ambulatory, normal inspection Neurological exam: PRESENT: alert, awake, oriented to person, oriented to place, oriented to time, oriented to situation, CN II-XII grossly intact Psychiatric exam: PRESENT: appropriate affect - Reflecting his illness. ABSENT: agitated, anxious Results Laboratory Results: 09/03/19 19:12 09/04/19 10:05 09/03/19 09/04/19 09/04/19 19:12 03:10 10:05 WBC 20.1 H RBC 3.86 L Hgb 12.2 L D Hct 36.6 L MCV 95 MCH 31.7 MCHC 33.4 RDW 12.9 Plt Count 249 Creatinine 2.01 H Est GFR ( Amer) 39 L Urine Color YELLOW Urine Appearance CLEAR Urine pH 5.0 Ur Specific [place] 1.018 Urine Protein NEGATIVE Urine Glucose (UA) NEGATIVE Urine Ketones NEGATIVE Urine Blood NEGATIVE Urine Nitrite NEGATIVE Ur Leukocyte Esterase NEGATIVE Urine WBC (Auto) 1 Urine RBC (Auto) 0 09/02/19 20:25 Blood Blood Culture (PCR) - Final Staphylococcus Aureus 09/02/19 09/02/19 09/02/19 16:05 16:05 16:05 Creatine Kinase 147 CK-MB (CK-2) 2.66 Troponin I < 0.012 NT-Pro-B Natriuret Pep 498 H 09/02/19 09/03/19 09/03/19 20:25 02:44 02:44 Creatine Kinase 113 CK-MB (CK-2) 1.95 Troponin I < 0.012 < 0.012 NT-Pro-B Natriuret Pep 09/03/19 09/03/19 09/03/19 08:44 08:44 15:15 Creatine Kinase 161 243 H CK-MB (CK-2) 2.67 Troponin I < 0.012 NT-Pro-B Natriuret Pep 09/03/19 15:15 Creatine Kinase CK-MB (CK-2) 3.90 Troponin I < 0.012 NT-Pro-B Natriuret Pep Impressions: Chest X-Ray 09/02/19 16:46 IMPRESSION: NO ACUTE RADIOGRAPHIC FINDING IN THE CHEST. Assessment and Plan - Diagnosis (1) Chest pain Qualifiers: Chest pain type: unspecified Qualified Code(s): R07.9 - Chest pain, unspecified Is this a current diagnosis for this admission?: Yes Plan: 09/03/2019-the patient states that he is pain-free. We discussed the symptoms. He did not feel it was particularly pleuritic. It was sharp and severe yesterday but not today. We will continue his baseline cardiac medications at this time. It is most likely that chest pain is musculoskeletal. 09/04/2019-resolved. Continue current cardiac medications (2) Chronic atrial fibrillation Is this a current diagnosis for this admission?: Yes Plan: 09/03/2019-continue current regimen. His heart rate has been under reasonable control. Continue anticoagulation. 09/04/2019-reasonable rate control. Continue current medications. I will consolidate diltiazem to a single long-acting pill for tomorrow morning. (3) Chronic anticoagulation Is this a current diagnosis for this admission?: Yes Plan: 09/03/2019-continue warfarin with target INR 2.0-3.0 09/04/2019-INR still subtherapeutic. Warfarin per protocol. (4) Hypertension Qualifiers: Hypertension type: essential hypertension Qualified Code(s): I10 - Essential (primary) hypertension Is this a current diagnosis for this admission?: Yes Plan: 09/03/2019-the patient blood pressures have been elevated. He is currently on amlodipine, losartan and Cardizem. He still occasionally has elevated blood pressure. I will consolidate the diltiazem to extended release dosing and he may need adjustments in his other medications. 09/04/2019-systolic pressures still higher than desired. We will continue to monitor. He may very well need an increase in his medication regimen. The goal would be systolic pressure at least less than 140. (5) MRSA bacteremia Is this a current diagnosis for this admission?: Yes Plan: 09/03/2019-the laboratory notified me that the patient did have a blood culture positive for methicillin-resistant staph aureus. He will be started on vancomycin. 09/04/2019-vancomycin dosing per pharmacy (6) COPD (chronic obstructive pulmonary disease) Qualifiers: COPD type: emphysema Emphysema type: unspecified Qualified Code(s): J43.9 - Emphysema, unspecified Is this a current diagnosis for this admission?: Yes Plan: 09/03/2019-the breathing is quite comfortable. We did discuss the susceptibility to respiratory infection for patients with COPD. Other than his white blood cell count there is no focal evidence for pneumonia at this time. Will monitor closely. 09/04/2019-the patient is clearly exhibiting increased work of breathing as well as audible wheezing. This clinical picture is more consistent with his elevated white count and there is likely pneumonia causing an exacerbation of his COPD. At this time we will maximize nebulizer treatments. No steroid therapy yet because of the bacteremia however based on his response to therapy steroids may need to be added. (7) Acute on chronic respiratory failure with hypoxemia Is this a current diagnosis for this admission?: Yes Plan: 09/04/2019-since early this morning the patient has required supplemental oxygen and exhibits increased work of breathing. He clearly has developed a respiratory infection and an exacerbation of his chronic obstructive pulmonary disease. We will continue the antibiotics and broaden to cover pneumonia. Aggressive nebulizer treatments as well. (8) Pneumonia Qualifiers: Pneumonia type: due to unspecified organism Laterality: unspecified laterality Lung location: unspecified part of lung Qualified Code(s): J18.9 - Pneumonia, unspecified organism Is this a current diagnosis for this admission?: Yes Plan: 09/04/2019-the patient has diffuse rhonchi and is clearly dyspneic. He has not been able to cough up any sputum. By exam he clearly has pneumonia and this is consistent with his elevated white blood cell count. He does have MRSA bacteremia and so MRSA pneumonia would certainly make sense. We will continue his current antibiotic therapy of vancomycin with the addition of ceftriaxone. Repeat chest x-ray has been ordered for tomorrow. We will recheck his white blood cell count as well. - Plan Summary Summary: Patient is admitted observation status on telemetry bed where he will receive routine supportive and symptomatic treatment. Serial cardiac enzymes will be obtained and a Cardiolite stress test will be ordered for the morning. Patient's chest pain will be treated with morphine sulfate 2 to 4 mg IV every 2 hours as needed using a sliding scale for pain. He will also receive Nitrol 2% ointment 1 g every 6 hours. Consideration for initiating metoprolol with an IV dosing regiment will be given if needed to control heart rate, blood pressure or pain. Patient will be continued on his usual medications for his chronic medical illnesses where possible and appropriate. He will be instructed to follow-up with Dr. Carey for further care and evaluation as an outpatient. - Time Time Spent with patient: 15-24 minutes Medications reviewed and adjusted accordingly: Yes
[2019-09-04] MEDS ORDERED: LEVALBUTEROL HCL NEB 0.63 MG/3 ML AMPUL NEB PRN (16:18)
[2019-09-04] MEDS: NORMAL SALINE 1000 ML 1,000 ML IV PRN (17:18)
--- NOTE | 2019-09-04 18:03 | RADIOLOGY REPORT (SQ) ---
EXAM DESCRIPTION: CHEST SINGLE VIEW COMPLETED DATE/TIME: 09/04/2019 5:52 pm REASON FOR STUDY: Pneumonia COMPARISON: 09/02/2019. FINDINGS: Single-view chest AP portable upright. Mild right basilar subsegmental atelectasis or developing pneumonia. This area was previously clear. TECHNICAL DOCUMENTATION: JOB ID: [id number] Reading location - IP/workstation name: [email or web address]
[2019-09-04] MEDS ORDERED: NITROGLYCERIN 0.4 MG/TAB 25 TAB/BOTTLE SL PRN (19:40)
[2019-09-04] MEDS: IPRATROPIUM BROMIDE 0.02% NEB 0.5 MG/2.5 ML AMPUL NEB SCH (20:53)
[2019-09-04] MEDS: LEVALBUTEROL HCL NEB 1.25 MG/3 ML AMPUL NEB SCH (20:53)
[2019-09-04] MEDS: BUDESONIDE NEB 0.5 MG/2 ML AMPUL NEB SCH (20:53)
[2019-09-04] MEDS: WARFARIN SODIUM 2.5 MG TABLET PO SCH (21:41)
[2019-09-04] MEDS ORDERED: WARFARIN SODIUM 2.5 MG TABLET PO SCH (22:00)
[2019-09-04 22:55] LABS: APPEARANCE,URINE CLEAR; BILIRUBIN,URINE NEGATIVE (NEGATIVE); COLOR,URINE YELLOW; GLUCOSE, URINE NEGATIVE (NEGATIVE); KETONES,URINE NEGATIVE (NEGATIVE); LEUKOCYTE ESTERASE,URINE NEGATIVE (NEGATIVE); NITRITE,URINE NEGATIVE (NEGATIVE); PROTEIN,URINE NEGATIVE (NEGATIVE); URINE SPECIFIC GRAVITY 1.014; UROBILINOGEN,URINE NEGATIVE mg/dL (<2.0)
[2019-09-05] MEDS: NORMAL SALINE 1000 ML 1,000 ML IV PRN ×3 (01:54→23:33)
[2019-09-05] MEDS: LEVALBUTEROL HCL NEB 1.25 MG/3 ML AMPUL NEB SCH ×2 (02:35→08:39)
[2019-09-05] MEDS: IPRATROPIUM BROMIDE 0.02% NEB 0.5 MG/2.5 ML AMPUL NEB SCH ×2 (02:35→08:39)
[2019-09-05] MEDS: DILTIAZEM HCL 60 MG TABLET PO SCH (05:33)
[2019-09-05 06:59] LABS: HEMATOCRIT 30.7 % (37.9-51.0); HEMOGLOBIN 10.3 g/dL (13.5-17.0); MEAN CORPUSCULAR HEMOGLOBIN 31.6 pg (27.0-33.4); MEAN CORPUSCULAR HGB CONC 33.6 g/dL (32.0-36.0); MEAN CORPUSCULAR VOLUME 94 fl (80-97); PLATELET COUNT 229 10^3/uL (150-450); RED BLOOD COUNT 3.27 10^6/uL (4.35-5.55); RED CELL DISTRIBUTION WIDTH 13.1 % (11.5-14.0); WHITE BLOOD COUNT 14.3 10^3/uL (4.0-10.5)
[2019-09-05 07:27] LABS: ANION GAP 15 (5-19); BLOOD UREA NITROGEN 39 mg/dL (7-20); CARBON DIOXIDE 21 mmol/L (22-30); CHLORIDE 102 mmol/L (98-107); GLUCOSE 150 mg/dL (75-110); POTASSIUM 4.3 mmol/L (3.6-5.0)
[2019-09-05 07:29] LABS: INTERNATIONAL RATION (INR) 1.78; PROTHROMBIN TIME 20.9 SEC (11.4-15.4)
[2019-09-05 08:18] LABS: ABSOLUTE LYMPHOCYTES# (MANUAL) 0.9 10^3/uL (0.5-4.7); ABSOLUTE MONOCYTES # (MANUAL) 0.9 10^3/uL (0.1-1.4); BASOPHILS % (MANUAL) 1 % (0-2); EOSINOPHILS % (MANUAL) 0 % (0-6); LYMPHOCYTES % (MANUAL) 6 % (13-45); MONOCYTES % (MANUAL) 6 % (3-13); SEGMENTED NEUTROPHILS % (MAN) 87 % (42-78); TOTAL CELLS COUNTED 100
[2019-09-05 08:19] LABS: PLATELET COMMENT ADEQUATE; RBC MORPHOLOGY COMMENT NORMO-CYTIC/CHROMIC
[2019-09-05] MEDS: BUDESONIDE NEB 0.5 MG/2 ML AMPUL NEB SCH ×2 (08:39→20:51)
[2019-09-05] MEDS: DOCUSATE SODIUM 100 MG CAPSULE PO SCH ×2 (09:25→17:00)
[2019-09-05] MEDS: PANTOPRAZOLE SODIUM 40 MG VIAL IV SCH ×2 (09:31→21:09)
[2019-09-05] MEDS: FENOFIBRATE NANOCRYSTALLIZED 145 MG TABLET PO SCH (09:32)
[2019-09-05] MEDS: LOSARTAN POTASSIUM 50 MG TABLET PO SCH (09:32)
[2019-09-05] MEDS: ATORVASTATIN CALCIUM 40 MG TABLET PO SCH (09:32)
[2019-09-05] MEDS: AMLODIPINE BESYLATE 10 MG TABLET PO SCH (09:34)
[2019-09-05] MEDS: ASPIRIN 81 MG TABLET, CHEWABLE PO SCH (09:34)
[2019-09-05] MEDS: CEFTRIAXONE 2 GM/D5W RTU 2 GM/50 ML RTUPB IV SCH (09:37)
[2019-09-05] MEDS: DILTIAZEM HCL 240 MG CAPSULE.CR PO SCH (09:37)
[2019-09-05 10:25] LABS: ARTERIAL BLOOD BASE EXCESS -4.9 mmol/L; ARTERIAL BLOOD H2CO3 0.83 mmol/L (1.05-1.35); ARTERIAL BLOOD HCO3 17.6 mmol/L (20-24); ARTERIAL BLOOD O2 SATURATION 95.9 % (94-98); ARTERIAL BLOOD PCO2 27.5 mmHg (35-45); ARTERIAL BLOOD PH 7.43 (7.35-7.45); ARTERIAL BLOOD PO2 76.9 mmHg (80-100); ARTERIAL BLOOD TOTAL CO2 18.5 mmol/L (23-27)
[2019-09-05 10:26] LABS: ARTERIAL BLOOD FIO2 4
[2019-09-05] MEDS: VANCOMYCIN HCL 1,000 MG in DEXTROSE 5%-WATER 250 ML IV SCH (11:03)
--- NOTE | 2019-09-05 11:19 | PDOC PROGRESS REPORT ---
Subjective Progress Note for:: 09/05/19 Subjective:: Patient was having significant work of breathing when I walked in this morning. At that time patient was receiving Xopenex nebulizer treatment. He states that his breathing worsened with the treatment. Endorses mild cough. He denies chest pain at the time. Denies fevers chills or wounds. Reason For Visit: MRSA BLOOD CULTURES Physical Exam Vital Signs: Temp Pulse Resp BP Pulse Ox 97.9 F 77 26 H 149/60 H 93 09/05/19 07:59 09/05/19 08:39 09/05/19 08:39 09/05/19 07:59 09/05/19 08:39 Intake & Output 09/04/19 09/05/19 09/06/19 06:59 06:59 06:59 Intake Total 960 1780 Balance 960 1780 Weight 83 kg 83.1 kg General appearance: PRESENT: cooperative, severe distress Neck exam: ABSENT: JVD Respiratory exam: PRESENT: prolonged expiratory phas, symmetrical, tachypnea, wheezes. ABSENT: rales, unlabored Cardiovascular exam: PRESENT: RRR, +S1, +S2. ABSENT: irregular rhythm, tachycardia GI/Abdominal exam: PRESENT: normal bowel sounds, soft. ABSENT: rebound, rigid, tenderness Neurological exam: PRESENT: alert, awake, oriented to person, oriented to place, oriented to time, oriented to situation Results Laboratory Results: 09/05/19 05:33 09/05/19 05:33 09/04/19 09/04/19 09/05/19 10:05 18:40 05:33 WBC 14.3 H RBC 3.27 L Hgb 10.3 L Hct 30.7 L MCV 94 MCH 31.6 MCHC 33.6 RDW 13.1 Plt Count 229 Seg Neutrophils % Not Reportable Carbonic Acid HCO3/H2CO3 Ratio ABG pH ABG pCO2 ABG pO2 ABG HCO3 ABG O2 Saturation ABG Base Excess FiO2 Sodium Potassium Chloride Carbon Dioxide Anion Gap BUN Creatinine 2.01 H Est GFR ( Amer) 39 L Glucose Calcium Magnesium Urine Color YELLOW Urine Appearance CLEAR Urine pH 6.0 Ur Specific [place] 1.014 Urine Protein NEGATIVE Urine Glucose (UA) NEGATIVE Urine Ketones NEGATIVE Urine Blood SMALL H Urine Nitrite NEGATIVE Ur Leukocyte Esterase NEGATIVE Urine WBC (Auto) 0 Urine RBC (Auto) 0 09/05/19 09/05/19 05:33 09:33 WBC RBC Hgb Hct MCV MCH MCHC RDW Plt Count Seg Neutrophils % Carbonic Acid 0.83 L HCO3/H2CO3 Ratio 21:1 ABG pH 7.43 ABG pCO2 27.5 L ABG pO2 76.9 L ABG HCO3 17.6 L ABG O2 Saturation 95.9 ABG Base Excess -4.9 FiO2 4 Sodium 138.1 Potassium 4.3 Chloride 102 Carbon Dioxide 21 L Anion Gap 15 BUN 39 H Creatinine 1.85 H Est GFR ( Amer) 43 L Glucose 150 H Calcium 9.0 Magnesium 2.4 H Urine Color Urine Appearance Urine pH Ur Specific [place] Urine Protein Urine Glucose (UA) Urine Ketones Urine Blood Urine Nitrite Ur Leukocyte Esterase Urine WBC (Auto) Urine RBC (Auto) 09/02/19 20:25 Blood Blood Culture (PCR) - Final Staphylococcus Aureus 09/02/19 20:25 Blood Blood Culture - Final Mrsa (Meth Resis Staph Aureus) 09/02/19 09/02/19 09/02/19 16:05 16:05 16:05 Creatine Kinase 147 CK-MB (CK-2) 2.66 Troponin I < 0.012 NT-Pro-B Natriuret Pep 498 H 09/02/19 09/03/19 09/03/19 20:25 02:44 02:44 Creatine Kinase 113 CK-MB (CK-2) 1.95 Troponin I < 0.012 < 0.012 NT-Pro-B Natriuret Pep 09/03/19 09/03/19 09/03/19 08:44 08:44 15:15 Creatine Kinase 161 243 H CK-MB (CK-2) 2.67 Troponin I < 0.012 NT-Pro-B Natriuret Pep 09/03/19 15:15 Creatine Kinase CK-MB (CK-2) 3.90 Troponin I < 0.012 NT-Pro-B Natriuret Pep Assessment and Plan - Diagnosis (1) Acute on chronic respiratory failure with hypoxemia Is this a current diagnosis for this admission?: Yes Plan: 09/04/2019-since early this morning the patient has required supplemental oxygen and exhibits increased work of breathing. He clearly has developed a respira tory infection and an exacerbation of his chronic obstructive pulmonary disease. We will continue the antibiotics and broaden to cover pneumonia. Aggressive nebulizer treatments as well. 09/05/2019-patient was showing significant work of breathing using accessory muscles when I walked in this morning despite the fact that he was receiving a Xopenex nebulizer An ABG was obtained and patient was placed on BiPAP. Settings for BiPAP were placed at 10/5 as patient could not tolerate higher settings. ABG was obtained which showed normal pH and interestingly low PCO2 levels. Patient was having active significant wheezing at the time and as such I will treat for COPD exacerbation. However his low PCO2 levels may be somewhat indicative of some component of anxiety. I will maintain on BiPAP at this time wean off later today. I will also discontinue Xopenex and try duo nebs instead. (2) COPD with acute exacerbation Is this a current diagnosis for this admission?: Yes Plan: 09/03/2019-the breathing is quite comfortable. We did discuss the susceptibility to respiratory infection for patients with COPD. Other than his white blood cell count there is no focal evidence for pneumonia at this time. Will monitor closely. 09/04/2019-the patient is clearly exhibiting increased work of breathing as well as audible wheezing. This clinical picture is more consistent with his elevated white count and there is likely pneumonia causing an exacerbation of his COPD. At this time we will maximize nebulizer treatments. No steroid therapy yet because of the bacteremia however based on his response to therapy steroids may need to be added. 09/05/2019-continue standing nebulizers. Patient requiring BiPAP this morning but will attempt to wean later today. Will start Solu-Medrol 40 mg every 12 and can de-escalate tomorrow. Incentive spirometer. Continue Pulmicort. (3) MRSA bacteremia Is this a current diagnosis for this admission?: Yes Plan: 09/03/2019-the laboratory notified me that the patient did have a blood culture positive for methicillin-resistant staph aureus. He will be started on vancomycin. 09/04/2019-vancomycin dosing per pharmacy 09/05/2019-repeat blood cultures obtained today. Continue with vancomycin while monitoring vancomycin trough. Will place order for TTE for evaluation of cardiac involvement. (4) Pneumonia Qualifiers: Pneumonia type: due to unspecified organism Laterality: unspecified laterality Lung location: unspecified part of lung Qualified Code(s): J18.9 - Pneumonia, unspecified organism Is this a current diagnosis for this admission?: Yes Plan: 09/04/2019-the patient has diffuse rhonchi and is clearly dyspneic. He has not been able to cough up any sputum. By exam he clearly has pneumonia and this is consistent with his elevated white blood cell count. He does have MRSA bacteremia and so MRSA pneumonia would certainly make sense. We will continue his current antibiotic therapy of vancomycin with the addition of ceftriaxone. Repeat chest x-ray has been ordered for tomorrow. We will recheck his white blood cell count as well. 09/05/2019-continuing vancomycin and ceftriaxone for treatment of bacterial pn [place] in setting of MRSA bacteremia. (5) Chronic atrial fibrillation Is this a current diagnosis for this admission?: Yes Plan: 09/03/2019-continue current regimen. His heart rate has been under reasonable control. Continue anticoagulation. 09/04/2019-reasonable rate control. Continue current medications. I will consolidate diltiazem to a single long-acting pill for tomorrow morning. 09/05/2019-heart rates controlled at the moment. Continue regimen of diltiazem. Continue warfarin. (6) Subtherapeutic international normalized ratio (INR) Is this a current diagnosis for this admission?: Yes Plan: INR goal of 2-3 for A. fib. Still subtherapeutic on warfarin but slowly creeping up. If INR remains subtherapeutic tomorrow, consider increasing dose from home dose of 1.25 mg to 1.75 mg nightly. - Time Time Spent with patient: 25-34 minutes
[2019-09-05] MEDS: METHYLPREDNISOLONE INJ 40 MG/1 ML SDV IV SCH ×2 (11:36→21:09)
[2019-09-05] MEDS ORDERED: IPRATROPIUM/ALBUTEROL 0.5-2.5 MG/3 ML AMPUL NEB SCH (12:00)
[2019-09-05] MEDS: METOPROLOL TARTRATE PF/INJ 5 MG/5 ML SDV IV PRN (12:19)
[2019-09-05] MEDS: IPRATROPIUM/ALBUTEROL 0.5-2.5 MG/3 ML AMPUL NEB SCH ×2 (14:19→20:51)
[2019-09-05] MEDS ORDERED: LOSARTAN POTASSIUM 50 MG TABLET PO ONE (18:00)
[2019-09-05] MEDS: WARFARIN SODIUM 2.5 MG TABLET PO SCH (21:09)
[2019-09-06] MEDS: IPRATROPIUM/ALBUTEROL 0.5-2.5 MG/3 ML AMPUL NEB SCH ×4 (02:31→21:14)
[2019-09-06] MEDS: METOPROLOL TARTRATE PF/INJ 5 MG/5 ML SDV IV PRN ×2 (04:39→17:45)
[2019-09-06 06:20] LABS: INTERNATIONAL RATION (INR) 1.89
[2019-09-06 06:23] LABS: HEMATOCRIT 32.7 % (37.9-51.0); HEMOGLOBIN 10.9 g/dL (13.5-17.0); MEAN CORPUSCULAR HEMOGLOBIN 31.6 pg (27.0-33.4); MEAN CORPUSCULAR HGB CONC 33.3 g/dL (32.0-36.0); MEAN CORPUSCULAR VOLUME 95 fl (80-97); PLATELET COUNT 252 10^3/uL (150-450); RED BLOOD COUNT 3.44 10^6/uL (4.35-5.55); RED CELL DISTRIBUTION WIDTH 13.2 % (11.5-14.0); WHITE BLOOD COUNT 15.2 10^3/uL (4.0-10.5)
[2019-09-06 06:32] LABS: ANION GAP 14 (5-19); BLOOD UREA NITROGEN 36 mg/dL (7-20); CALCIUM 8.9 mg/dL (8.4-10.2); CARBON DIOXIDE 19 mmol/L (22-30); CHLORIDE 105 mmol/L (98-107); GLUCOSE 247 mg/dL (75-110); POTASSIUM 4.4 mmol/L (3.6-5.0)
[2019-09-06] MEDS: BUDESONIDE NEB 0.5 MG/2 ML AMPUL NEB SCH ×2 (07:29→21:14)
[2019-09-06 07:42] LABS: ABSOLUTE LYMPHOCYTES# (MANUAL) 0.3 10^3/uL (0.5-4.7); ABSOLUTE MONOCYTES # (MANUAL) 1.1 10^3/uL (0.1-1.4); BASOPHILS % (MANUAL) 0 % (0-2); EOSINOPHILS % (MANUAL) 0 % (0-6); LYMPHOCYTES % (MANUAL) 2 % (13-45); MONOCYTES % (MANUAL) 7 % (3-13); SEGMENTED NEUTROPHILS % (MAN) 91 % (42-78); TOTAL CELLS COUNTED 100
[2019-09-06 07:44] LABS: PLATELET COMMENT ADEQUATE; TOXIC GRANULATION 1+
[2019-09-06] MEDS: FENOFIBRATE NANOCRYSTALLIZED 145 MG TABLET PO SCH (10:06)
[2019-09-06] MEDS: LOSARTAN POTASSIUM 50 MG TABLET PO SCH (10:06)
[2019-09-06] MEDS: ASPIRIN 81 MG TABLET, CHEWABLE PO SCH (10:07)
[2019-09-06] MEDS: AMLODIPINE BESYLATE 10 MG TABLET PO SCH (10:07)
[2019-09-06] MEDS: ATORVASTATIN CALCIUM 40 MG TABLET PO SCH (10:07)
[2019-09-06] MEDS: CEFTRIAXONE 2 GM/D5W RTU 2 GM/50 ML RTUPB IV SCH (10:08)
[2019-09-06] MEDS: PANTOPRAZOLE SODIUM 40 MG VIAL IV SCH ×2 (10:08→22:01)
[2019-09-06] MEDS: DILTIAZEM HCL 240 MG CAPSULE.CR PO SCH (10:08)
[2019-09-06] MEDS: METHYLPREDNISOLONE INJ 40 MG/1 ML SDV IV SCH ×2 (10:08→22:01)
[2019-09-06] MEDS: DOCUSATE SODIUM 100 MG CAPSULE PO SCH ×2 (10:09→17:08)
[2019-09-06] MEDS: VANCOMYCIN HCL 1,000 MG in DEXTROSE 5%-WATER 250 ML IV SCH (12:12)
--- NOTE | 2019-09-06 14:48 | PDOC PROGRESS REPORT ---
Subjective Progress Note for:: 09/06/19 Subjective:: No adverse events overnight. He said he does not want to use the BiPAP again. He still little dyspneic at rest. No fevers. Reason For Visit: MRSA BLOOD CULTURES Physical Exam Vital Signs: Temp Pulse Resp BP Pulse Ox 97.4 F 98 24 H 150/71 H 94 09/06/19 08:51 09/06/19 08:51 09/06/19 08:51 09/06/19 08:51 09/06/19 08:51 Intake & Output 09/05/19 09/06/19 09/07/19 06:59 06:59 06:59 Intake Total 1780 3260 50 Balance 1780 3260 50 Weight 83.1 kg 83.3 kg General appearance: PRESENT: cooperative, disheveled, mild distress Respiratory exam: PRESENT: accessory muscle use, prolonged expiratory phas, symmetrical, wheezes. ABSENT: chest wall tenderness, crackles, rhonchi, tachypnea, unlabored Cardiovascular exam: PRESENT: RRR, +S1, +S2 Pulses: PRESENT: normal carotid pulses Vascular exam: PRESENT: normal capillary refill GI/Abdominal exam: PRESENT: normal bowel sounds, soft. ABSENT: distended, guarding, rebound, tenderness Extremities exam: ABSENT: clubbing, pedal edema Musculoskeletal exam: PRESENT: normal inspection. ABSENT: deformity Neurological exam: PRESENT: alert, awake, oriented to person, oriented to place, oriented to situation Psychiatric exam: PRESENT: anxious Skin exam: PRESENT: dry, warm Results Laboratory Results: 09/06/19 05:24 09/06/19 05:24 09/06/19 09/06/19 05:24 05:24 WBC 15.2 H RBC 3.44 L Hgb 10.9 L Hct 32.7 L MCV 95 MCH 31.6 MCHC 33.3 RDW 13.2 Plt Count 252 Seg Neutrophils % Not Reportable Sodium 137.6 Potassium 4.4 Chloride 105 Carbon Dioxide 19 L Anion Gap 14 BUN 36 H Creatinine 1.59 H Est GFR ( Amer) 52 L Glucose 247 H Calcium 8.9 09/02/19 20:25 Blood Blood Culture (PCR) - Final Staphylococcus Aureus 09/02/19 20:25 Blood Blood Culture - Final Mrsa (Meth Resis Staph Aureus) 09/02/19 09/02/19 09/02/19 16:05 16:05 16:05 Creatine Kinase 147 CK-MB (CK-2) 2.66 Troponin I < 0.012 NT-Pro-B Natriuret Pep 498 H 09/02/19 09/03/19 09/03/19 20:25 02:44 02:44 Creatine Kinase 113 CK-MB (CK-2) 1.95 Troponin I < 0.012 < 0.012 NT-Pro-B Natriuret Pep 09/03/19 09/03/19 09/03/19 08:44 08:44 15:15 Creatine Kinase 161 243 H CK-MB (CK-2) 2.67 Troponin I < 0.012 NT-Pro-B Natriuret Pep 09/03/19 15:15 Creatine Kinase CK-MB (CK-2) 3.90 Troponin I < 0.012 NT-Pro-B Natriuret Pep Assessment and Plan - Diagnosis (1) Acute on chronic respiratory failure with hypoxemia Is this a current diagnosis for this admission?: Yes Plan: Continue supplemental O2 to maintain SPO2 greater than 90% (2) COPD with acute exacerbation Is this a current diagnosis for this admission?: Yes Plan: Continue steroids, antibiotics, bronchodilators (3) MRSA bacteremia Is this a current diagnosis for this admission?: Yes Plan: Blood cultures were repeated yesterday. Echocardiogram has been ordered. He is on vancomycin. (4) Pneumonia Qualifiers: Pneumonia type: due to unspecified organism Laterality: unspecified laterality Lung location: unspecified part of lung Qualified Code(s): J18.9 - Pneumonia, unspecified organism Is this a current diagnosis for this admission?: Yes Plan: At this time is believed that this may be the source of his bacteremia. Antibiotics as noted above. We have not been able to get a deep sputum specimen. - Time Time Spent with patient: 15-24 minutes
[2019-09-06 18:01] LABS: HEMATOCRIT 33.7 % (37.9-51.0); HEMOGLOBIN 11.2 g/dL (13.5-17.0); MEAN CORPUSCULAR HEMOGLOBIN 31.7 pg (27.0-33.4); MEAN CORPUSCULAR HGB CONC 33.3 g/dL (32.0-36.0); MEAN CORPUSCULAR VOLUME 95 fl (80-97); PLATELET COUNT 297 10^3/uL (150-450); RED BLOOD COUNT 3.55 10^6/uL (4.35-5.55); WHITE BLOOD COUNT 18.8 10^3/uL (4.0-10.5)
[2019-09-06] MEDS: WARFARIN SODIUM 1 MG TABLET PO SCH (22:01)
[2019-09-07] MEDS: IPRATROPIUM/ALBUTEROL 0.5-2.5 MG/3 ML AMPUL NEB SCH ×4 (02:04→19:28)
[2019-09-07] MEDS: BUDESONIDE NEB 0.5 MG/2 ML AMPUL NEB SCH ×2 (07:26→19:28)
[2019-09-07 10:06] LABS: INTERNATIONAL RATION (INR) 2.13; PROTHROMBIN TIME 24.2 SEC (11.4-15.4)
[2019-09-07] MEDS: ATORVASTATIN CALCIUM 40 MG TABLET PO SCH (11:03)
[2019-09-07] MEDS: LOSARTAN POTASSIUM 50 MG TABLET PO SCH (11:03)
[2019-09-07] MEDS: DOCUSATE SODIUM 100 MG CAPSULE PO SCH ×2 (11:03→17:22)
[2019-09-07] MEDS: VANCOMYCIN HCL 1,000 MG in DEXTROSE 5%-WATER 250 ML IV SCH (11:04)
[2019-09-07] MEDS: AMLODIPINE BESYLATE 10 MG TABLET PO SCH (11:04)
[2019-09-07] MEDS: ASPIRIN 81 MG TABLET, CHEWABLE PO SCH (11:04)
[2019-09-07] MEDS: CEFTRIAXONE 2 GM/D5W RTU 2 GM/50 ML RTUPB IV SCH (11:04)
[2019-09-07] MEDS: PANTOPRAZOLE SODIUM 40 MG VIAL IV SCH (11:05)
[2019-09-07] MEDS: METHYLPREDNISOLONE INJ 40 MG/1 ML SDV IV SCH ×2 (11:05→21:50)
[2019-09-07] MEDS: DILTIAZEM HCL 240 MG CAPSULE.CR PO SCH (11:53)
[2019-09-07] MEDS: FENOFIBRATE NANOCRYSTALLIZED 145 MG TABLET PO SCH (11:54)
--- NOTE | 2019-09-07 15:57 | PDOC PROGRESS REPORT ---
Subjective Progress Note for:: 09/07/19 Subjective:: He has not had a productive cough. No adverse events overnight. No new complaints. He says overall he feels better. Reason For Visit: MRSA BLOOD CULTURES Physical Exam Vital Signs: Temp Pulse Resp BP Pulse Ox 97.9 F 103 H 20 159/83 H 97 09/07/19 15:15 09/07/19 15:15 09/07/19 15:15 09/07/19 15:15 09/07/19 15:15 Intake & Output 09/06/19 09/07/19 09/08/19 06:59 06:59 06:59 Intake Total 3260 2580 720 Output Total 200 Balance 3260 2380 720 Weight 83.3 kg 85 kg General appearance: PRESENT: cooperative, disheveled, mild distress Respiratory exam: PRESENT: prolonged expiratory phas, symmetrical. ABSENT: accessory muscle use, chest wall tenderness, crackles, rhonchi, tachypnea, unlabored, wheezes Cardiovascular exam: PRESENT: RRR, +S1, +S2 Pulses: PRESENT: normal carotid pulses Vascular exam: PRESENT: normal capillary refill GI/Abdominal exam: PRESENT: normal bowel sounds, soft. ABSENT: distended, guarding, rebound, tenderness Extremities exam: ABSENT: clubbing, pedal edema Musculoskeletal exam: PRESENT: normal inspection. ABSENT: deformity Neurological exam: PRESENT: alert, awake, oriented to person, oriented to place, oriented to situation Psychiatric exam: PRESENT: anxious Skin exam: PRESENT: dry, warm Results Laboratory Results: 09/06/19 17:45 09/06/19 05:24 09/06/19 17:45 WBC 18.8 H RBC 3.55 L Hgb 11.2 L Hct 33.7 L MCV 95 MCH 31.7 MCHC 33.3 RDW 13.0 Plt Count 297 09/02/19 09/02/19 09/02/19 16:05 16:05 16:05 Creatine Kinase 147 CK-MB (CK-2) 2.66 Troponin I < 0.012 NT-Pro-B Natriuret Pep 498 H 09/02/19 09/03/19 09/03/19 20:25 02:44 02:44 Creatine Kinase 113 CK-MB (CK-2) 1.95 Troponin I < 0.012 < 0.012 NT-Pro-B Natriuret Pep 09/03/19 09/03/19 09/03/19 08:44 08:44 15:15 Creatine Kinase 161 243 H CK-MB (CK-2) 2.67 Troponin I < 0.012 NT-Pro-B Natriuret Pep 09/03/19 15:15 Creatine Kinase CK-MB (CK-2) 3.90 Troponin I < 0.012 NT-Pro-B Natriuret Pep Assessment and Plan - Diagnosis (1) Acute on chronic respiratory failure with hypoxemia Is this a current diagnosis for this admission?: Yes Plan: Continue supplemental O2 to maintain SPO2 greater than 90% (2) COPD with acute exacerbation Is this a current diagnosis for this admission?: Yes Plan: Continue steroids, antibiotics, bronchodilators. May be able to de-escalate tomorrow. (3) MRSA bacteremia Is this a current diagnosis for this admission?: Yes Plan: Blood cultures were repeated and are pending. Echocardiogram has been ordered. He is on vancomycin. (4) Pneumonia Qualifiers: Pneumonia type: due to unspecified organism Laterality: unspecified laterality Lung location: unspecified part of lung Qualified Code(s): J18.9 - Pneumonia, unspecified organism Is this a current diagnosis for this admission?: Yes Plan: At this time is believed that this may be the source of his bacteremia. Antibiotics as noted above. We have not been able to get a deep sputum specimen. - Time Time Spent with patient: 15-24 minutes
[2019-09-07] MEDS: VANCOMYCIN HCL 750 MG in DEXTROSE 5%-WATER 250 ML IV SCH (17:23)
[2019-09-07] MEDS: WARFARIN SODIUM 1 MG TABLET PO SCH (21:50)
[2019-09-07] MEDS: PANTOPRAZOLE SODIUM 40 MG TABLET.DR PO SCH (21:50)
[2019-09-08] MEDS: IPRATROPIUM/ALBUTEROL 0.5-2.5 MG/3 ML AMPUL NEB SCH ×4 (01:57→19:33)
[2019-09-08] MEDS: VANCOMYCIN HCL 750 MG in DEXTROSE 5%-WATER 250 ML IV SCH ×2 (05:33→17:57)
[2019-09-08 06:13] LABS: INTERNATIONAL RATION (INR) 2.29; PROTHROMBIN TIME 25.6 SEC (11.4-15.4)
[2019-09-08] MEDS: BUDESONIDE NEB 0.5 MG/2 ML AMPUL NEB SCH ×2 (07:47→19:33)
[2019-09-08] MEDS: PANTOPRAZOLE SODIUM 40 MG TABLET.DR PO SCH ×2 (10:18→21:22)
[2019-09-08] MEDS: AMLODIPINE BESYLATE 10 MG TABLET PO SCH (10:18)
[2019-09-08] MEDS: DILTIAZEM HCL 240 MG CAPSULE.CR PO SCH (10:18)
[2019-09-08] MEDS: ASPIRIN 81 MG TABLET, CHEWABLE PO SCH (10:18)
[2019-09-08] MEDS: LOSARTAN POTASSIUM 50 MG TABLET PO SCH (10:18)
[2019-09-08] MEDS: FENOFIBRATE NANOCRYSTALLIZED 145 MG TABLET PO SCH (10:18)
[2019-09-08] MEDS: DOCUSATE SODIUM 100 MG CAPSULE PO SCH ×2 (10:19→17:55)
[2019-09-08] MEDS: METHYLPREDNISOLONE INJ 40 MG/1 ML SDV IV SCH ×2 (10:19→21:22)
[2019-09-08] MEDS: ATORVASTATIN CALCIUM 40 MG TABLET PO SCH (10:19)
[2019-09-08] MEDS: CEFTRIAXONE 2 GM/D5W RTU 2 GM/50 ML RTUPB IV SCH (10:19)
--- NOTE | 2019-09-08 15:52 | PDOC PROGRESS REPORT ---
Subjective Progress Note for:: 09/08/19 Subjective:: No adverse events overnight. No new complaints. Vital signs been stable. He told me that the echocardiogram was done earlier today. He said he was not on oxygen at home. He said he is not been diagnosed with COPD but he smoked for over 60 years. Reason For Visit: MRSA BLOOD CULTURES Physical Exam Vital Signs: Temp Pulse Resp BP Pulse Ox 98 F 77 20 176/70 H 94 09/08/19 15:25 09/08/19 15:25 09/08/19 15:25 09/08/19 15:25 09/08/19 15:25 Intake & Output 09/07/19 09/08/19 09/09/19 06:59 06:59 06:59 Intake Total 2580 2009 730 Output Total 200 Balance 2380 2009 730 Weight 85 kg General appearance: PRESENT: cooperative, disheveled, mild distress Respiratory exam: PRESENT: prolonged expiratory phas, symmetrical. ABSENT: accessory muscle use, chest wall tenderness, crackles, rhonchi, tachypnea, unlabored, wheezes Cardiovascular exam: PRESENT: RRR, +S1, +S2 Pulses: PRESENT: normal carotid pulses Vascular exam: PRESENT: normal capillary refill GI/Abdominal exam: PRESENT: normal bowel sounds, soft. ABSENT: distended, guarding, rebound, tenderness Extremities exam: ABSENT: clubbing, pedal edema Musculoskeletal exam: PRESENT: normal inspection. ABSENT: deformity Neurological exam: PRESENT: alert, awake, oriented to person, oriented to place, oriented to situation Psychiatric exam: PRESENT: anxious Skin exam: PRESENT: dry, warm Results Laboratory Results: 09/06/19 17:45 09/06/19 05:24 09/02/19 21:36 Blood Blood Culture - Final NO GROWTH IN 5 DAYS 09/02/19 09/02/19 09/02/19 16:05 16:05 16:05 Creatine Kinase 147 CK-MB (CK-2) 2.66 Troponin I < 0.012 NT-Pro-B Natriuret Pep 498 H 09/02/19 09/03/19 09/03/19 20:25 02:44 02:44 Creatine Kinase 113 CK-MB (CK-2) 1.95 Troponin I < 0.012 < 0.012 NT-Pro-B Natriuret Pep 09/03/19 09/03/19 09/03/19 08:44 08:44 15:15 Creatine Kinase 161 243 H CK-MB (CK-2) 2.67 Troponin I < 0.012 NT-Pro-B Natriuret Pep 09/03/19 15:15 Creatine Kinase CK-MB (CK-2) 3.90 Troponin I < 0.012 NT-Pro-B Natriuret Pep Assessment and Plan - Diagnosis (1) Acute on chronic respiratory failure with hypoxemia Is this a current diagnosis for this admission?: Yes Plan: Continue supplemental O2 to maintain SPO2 greater than 90%. He may need to go home on oxygen for short period of time because his SPO2 is in the low 90s but he is on about 5 L of oxygen to do it. (2) COPD with acute exacerbation Is this a current diagnosis for this admission?: Yes Plan: Continue steroids, antibiotics, bronchodilators. He will need to be started on some maintenance therapy at discharge will need follow-up with a saddle stitcher. (3) MRSA bacteremia Is this a current diagnosis for this admission?: Yes Plan: Blood cultures were repeated and are pending. Echocardiogram has been ordered. He is on vancomycin. (4) Pneumonia Qualifiers: Pneumonia type: due to unspecified organism Laterality: unspecified laterality Lung location: unspecified part of lung Qualified Code(s): J18.9 - Pneumonia, unspecified organism Is this a current diagnosis for this admission?: Yes Plan: At this time is believed that this may be the source of his bacteremia. Antibiotics as noted above. We have not been able to get a deep sputum specimen. - Time Time Spent with patient: 15-24 minutes
[2019-09-08] MEDS: WARFARIN SODIUM 1 MG TABLET PO SCH (21:22)
--- NOTE | 2019-09-08 22:09 | XCELERA REPORT ---
[address] [address] Transthoracic Echocardiogram Report Name: ANGELO JOSEPH Age: 74 yrs Gender: Male : 1945 Patient Status: Inpatient Patient Location: [address] [place], [place] [address] Study Date: 09/08/2019 09:55 AM Height: 70 in Weight: 185 lb BSA: 2.0 m2 Procedure: A complete two-dimensional transthoracic echocardiogram was performed (2D, M-mode, spectral and color flow Doppler). The study was technically difficult with many images being suboptimal in quality. Reason For Study: MRSA Bacteremia Ordering Physician: TOSIN PAUL Performed By: Brook Carroll Interpretation Summary The left ventricular ejection fraction is within normal limits. There is mild concentric left ventricular hypertrophy. The left ventricle is grossly normal size. Doppler measurements suggest pseudonormalized left ventricular relaxation, which is associated with grade II/IV or mild to moderate diastolic dysfunction Regional wall motion abnormalities cannot be excluded due to limited visualization. Right ventricular function cannot be assessed due to poor image quality. The left atrium is borderline dilated. The right atrium is normal. There is a mild amount of mitral regurgitation There is no mitral valve stenosis. There is a trace amount of aortic regurgitation There is no aortic valve stenosis There is a mild amount of tricuspid regurgitation Right ventricular systolic pressure is estimated to be elevated at 40-50mmHg. There is mild to moderate pulmonary hypertension by echo Small pericardial effusion. There are no echocardiographic or Doppler indications for cardiac tamponade MMode/2D Measurements & Calculations IVSd: 0.99 cm LVIDd: 4.9 cm FS: 40.0 % Ao root diam: 3.2 cm LVIDs: 2.9 cm EDV(Teich): 112.9 ml Ao root area: 8.2 cm2 LVPWd: 1.3 cm ESV(Teich): 33.3 ml EF(Teich): 70.5 % Doppler Measurements & Calculations Ao V2 max: LV V1 max PG: PA V2 max: TR max rafat: 149.0 cm/sec 3.4 mmHg 88.8 cm/sec 331.4 cm/sec Ao max P.9 mmHg LV V1 max: PA max PG: TR max P.9 mmHg 92.5 cm/sec 3.2 mmHg Left Ventricle The left ventricle is grossly normal size. There is mild concentric left ventricular hypertrophy. The left ventricular ejection fraction is within normal limits. Doppler measurements suggest pseudonormalized left ventricular relaxation, which is associated with grade II/IV or mild to moderate diastolic dysfunction. Not all wall segments were well visualized. Regional wall motion abnormalities cannot be excluded due to limited visualization. Right Ventricle The right ventricle is grossly normal size. Right ventricular function cannot be assessed due to poor image quality. Atria The right atrium is normal. The left atrium is borderline dilated. Interarterial septum not well visualized and not well dopplered. Cannot comment on ASD/PFO presence. Mitral Valve The mitral valve leaflets are sclerotic, but show no functional abnormalities. There is no mitral valve stenosis. There is a mild amount of mitral regurgitation. Aortic Valve The aortic valve is not well visualized secondary to technical limitations. There is no aortic valve stenosis. There is a trace amount of aortic regurgitation. Tricuspid Valve The tricuspid valve is not well visualized, but is grossly normal. There is no tricuspid stenosis. There is a mild amount of tricuspid regurgitation. Right ventricular systolic pressure is estimated to be elevated at 40-50mmHg. There is mild to moderate pulmonary hypertension by echo. Pulmonic Valve The pulmonic valve is not well visualized. Great Vessels The aortic root is not well visualized but is probably normal size. The inferior vena cava appeared normal and decreased > 50% with respiration (RAP 5-10 mmHg). Effusions Small pericardial effusion. There are no echocardiographic or Doppler indications for cardiac tamponade. : TOSIN PAUL Shyamal
[2019-09-09] MEDS: IPRATROPIUM/ALBUTEROL 0.5-2.5 MG/3 ML AMPUL NEB SCH ×4 (02:25→20:17)
[2019-09-09] MEDS: VANCOMYCIN HCL 750 MG in DEXTROSE 5%-WATER 250 ML IV SCH (06:05)
[2019-09-09 07:15] LABS: INTERNATIONAL RATION (INR) 2.47; PROTHROMBIN TIME 27.2 SEC (11.4-15.4)
[2019-09-09 07:32] LABS: VANCOMYCIN,TROUGH 12.2 ug/mL (5.0-20.0)
[2019-09-09] MEDS: BUDESONIDE NEB 0.5 MG/2 ML AMPUL NEB SCH ×2 (08:34→20:17)
[2019-09-09] MEDS: METHYLPREDNISOLONE INJ 40 MG/1 ML SDV IV SCH ×2 (10:39→22:35)
[2019-09-09] MEDS: DILTIAZEM HCL 240 MG CAPSULE.CR PO SCH (10:39)
[2019-09-09] MEDS: ATORVASTATIN CALCIUM 40 MG TABLET PO SCH (10:40)
[2019-09-09] MEDS: LOSARTAN POTASSIUM 50 MG TABLET PO SCH (10:40)
[2019-09-09] MEDS: PANTOPRAZOLE SODIUM 40 MG TABLET.DR PO SCH ×2 (10:40→22:33)
[2019-09-09] MEDS: FENOFIBRATE NANOCRYSTALLIZED 145 MG TABLET PO SCH (10:40)
[2019-09-09] MEDS: DOCUSATE SODIUM 100 MG CAPSULE PO SCH ×2 (10:40→18:42)
[2019-09-09] MEDS: ASPIRIN 81 MG TABLET, CHEWABLE PO SCH (10:40)
[2019-09-09] MEDS: AMLODIPINE BESYLATE 10 MG TABLET PO SCH (10:40)
[2019-09-09] MEDS: CEFTRIAXONE 2 GM/D5W RTU 2 GM/50 ML RTUPB IV SCH (10:45)
--- NOTE | 2019-09-09 14:53 | RADIOLOGY REPORT (SQ) ---
EXAM DESCRIPTION: PICC INSERTION; U/S GUIDE FOR VASCULAR ACCESS; FLUORO/CV PLACEMENT COMPLETED DATE/TIME: 09/09/2019 1:30 pm REASON FOR STUDY: iv access; IV ACCESS I48.20 CHRONIC ATRIAL FIBRILLATION, UNSPECIFIED COMPARISON: None. FLUOROSCOPY TIME: 59 seconds 3 images saved to PACS. TECHNIQUE: Fluoroscopic and ultrasound guided PICC placement. LIMITATIONS: None. PROCEDURE: After written consent and assessment were obtained, the patient was brought into the fluo roscopy room and placed supine on the table. Ultrasound evaluation of potential access sites were per formed. After successfully identifying a patent basilic vein in the left upper extremity, the upper a rm was prepped and draped in a sterile fashion along with the ultrasound probe. The entry site was an esthetized with 1% lidocaine. A 21 gauge 7 cm needle was advanced through the skin and into the basil ic vein under live ultrasound guidance. An ultrasound image was saved to PACS confirming access site . A .018 guide wire was then inserted through the needle and into the venous system. The needle was then removed and an 11 blade scalpel was used to make a 1cm skin incision. A 5 fr peel-away sheath w as advanced over the wire and into the venous system. A measurement was then made using the existing wire and live fluoroscopic guidance. The wire was then removed and trimmed. The PICC was advanced thr ough the peel-away sheath and into the venous system. The peel-away sheath was removed and the cathet er was adhered to the patients arm with a stat lock. The catheter was then aspirated and flushed and a sterile bandage was placed over the access site. A fluoroscopic spot image was saved to PACS confi rming the catheter tip within the SVC. IMPRESSION: SUCCESSFUL PLACEMENT OF A 5 FR DUAL LUMEN 40 CM PICC IN THE LEFT BASILIC VEIN. COMMENT: Patient medication list reviewed: Yes- Quality ID# [id number]:Eligible professional attests to doc umenting in the medical record they obtained, updated, or reviewed the patient's current medications. . Quality ID 145: Final reports for procedures using fluoroscopy that document radiation exposure jonah torsten, or exposure time and number of fluorographic images (if radiation exposure indices are not avail able) Quality ID #76: The patient was prepped and draped using maximum sterile barrier technique including cap, mask, sterile gown, sterile gloves, a large sterile sheet, hand hygiene, and 2% Chlorhexidine fo r cutaneous antisepsis. When ultrasound is used, sterile ultrasound techniques are followed requiring sterile gel and sterile probes. TECHNICAL DOCUMENTATION: JOB ID: [id number] [employer]- All Rights Reserved rev-02/07 Reading location - IP/workstation name: [email or web address] [id number]
--- NOTE | 2019-09-09 17:19 | PDOC PROGRESS REPORT ---
Subjective Progress Note for:: 09/09/19 Subjective:: No adverse events overnight. His oxygen has been turned down to 4 L today and has been pretty comfortable on that. No fevers. No cough today. Reason For Visit: MRSA BLOOD CULTURES Physical Exam Vital Signs: Temp Pulse Resp BP Pulse Ox 97.5 F 94 20 187/89 H 98 09/09/19 15:36 09/09/19 15:36 09/09/19 15:36 09/09/19 15:36 09/09/19 15:36 Intake & Output 09/08/19 09/09/19 09/10/19 06:59 06:59 06:59 Intake Total 2009 1510 1010 Balance 2009 1510 1010 Weight 83.8 kg General appearance: PRESENT: cooperative, disheveled, mild distress Respiratory exam: PRESENT: prolonged expiratory phas, symmetrical. ABSENT: accessory muscle use, chest wall tenderness, crackles, rhonchi, tachypnea, unlabored, wheezes Cardiovascular exam: PRESENT: RRR, +S1, +S2 Pulses: PRESENT: normal carotid pulses Vascular exam: PRESENT: normal capillary refill GI/Abdominal exam: PRESENT: normal bowel sounds, soft. ABSENT: distended, guarding, rebound, tenderness Extremities exam: ABSENT: clubbing, pedal edema Musculoskeletal exam: PRESENT: normal inspection. ABSENT: deformity Neurological exam: PRESENT: alert, awake, oriented to person, oriented to place, oriented to situation Psychiatric exam: PRESENT: anxious Skin exam: PRESENT: dry, warm Results Laboratory Results: 09/06/19 17:45 09/06/19 05:24 09/02/19 09/02/19 09/02/19 16:05 16:05 16:05 Creatine Kinase 147 CK-MB (CK-2) 2.66 Troponin I < 0.012 NT-Pro-B Natriuret Pep 498 H 09/02/19 09/03/19 09/03/19 20:25 02:44 02:44 Creatine Kinase 113 CK-MB (CK-2) 1.95 Troponin I < 0.012 < 0.012 NT-Pro-B Natriuret Pep 09/03/19 09/03/19 09/03/19 08:44 08:44 15:15 Creatine Kinase 161 243 H CK-MB (CK-2) 2.67 Troponin I < 0.012 NT-Pro-B Natriuret Pep 09/03/19 15:15 Creatine Kinase CK-MB (CK-2) 3.90 Troponin I < 0.012 NT-Pro-B Natriuret Pep Impressions: Guidance Fluoroscopy 09/09/19 00:00 IMPRESSION: SUCCESSFUL PLACEMENT OF A 5 FR DUAL LUMEN 40 CM PICC IN THE LEFT BASILIC VEIN. Interventional Vascular Procedure 09/09/19 00:00 IMPRESSION: SUCCESSFUL PLACEMENT OF A 5 FR DUAL LUMEN 40 CM PICC IN THE LEFT BASILIC VEIN. PICC Line Insertion 09/09/19 00:00 IMPRESSION: SUCCESSFUL PLACEMENT OF A 5 FR DUAL LUMEN 40 CM PICC IN THE LEFT BASILIC VEIN. Assessment and Plan - Diagnosis (1) Acute on chronic respiratory failure with hypoxemia Is this a current diagnosis for this admission?: Yes Plan: Currently stable on 4 L per nasal cannula, anticipate he will need to be discharged home with oxygen (2) COPD with acute exacerbation Is this a current diagnosis for this admission?: Yes Plan: Continue steroids, antibiotics, bronchodilators. He will need to be started on some maintenance therapy at discharge will need follow-up with a certified dietary manager. He will probably be able to continue a course of prednisone at home, and will make sure he has a nebulizer. (3) MRSA bacteremia Is this a current diagnosis for this admission?: Yes Plan: For getting him a PICC line and are going to set him up with vancomycin at home, with a stop date of September 18. (4) Pneumonia Qualifiers: Pneumonia type: due to unspecified organism Laterality: unspecified laterality Lung location: unspecified part of lung Qualified Code(s): J18.9 - Pneumonia, unspecified organism Is this a current diagnosis for this admission?: Yes Plan: At this time is believed that this may be the source of his bacteremia. Antibiotics as noted above. We have not been able to get a deep sputum spe cimen. - Time Time Spent with patient: 15-24 minutes
[2019-09-09 18:11] LABS: HEMATOCRIT 36.6 % (37.9-51.0); HEMOGLOBIN 11.9 g/dL (13.5-17.0); MEAN CORPUSCULAR HEMOGLOBIN 31.3 pg (27.0-33.4); MEAN CORPUSCULAR HGB CONC 32.6 g/dL (32.0-36.0); MEAN CORPUSCULAR VOLUME 96 fl (80-97); PLATELET COUNT 365 10^3/uL (150-450); RED BLOOD COUNT 3.81 10^6/uL (4.35-5.55); WHITE BLOOD COUNT 17.4 10^3/uL (4.0-10.5)
[2019-09-09] MEDS: VANCOMYCIN HCL 1,000 MG in DEXTROSE 5%-WATER 250 ML IV SCH (18:48)
[2019-09-09] MEDS: METOPROLOL TARTRATE PF/INJ 5 MG/5 ML SDV IV PRN (20:07)
[2019-09-09 21:13] LABS: APPEARANCE,URINE CLEAR; BILIRUBIN,URINE NEGATIVE (NEGATIVE); COLOR,URINE YELLOW; GLUCOSE, URINE >=500 mg/dL (NEGATIVE); KETONES,URINE NEGATIVE (NEGATIVE); LEUKOCYTE ESTERASE,URINE NEGATIVE (NEGATIVE); NITRITE,URINE NEGATIVE (NEGATIVE); PROTEIN,URINE NEGATIVE (NEGATIVE); URINE SPECIFIC GRAVITY 1.022; UROBILINOGEN,URINE NEGATIVE mg/dL (<2.0)
[2019-09-09] MEDS: WARFARIN SODIUM 1 MG TABLET PO SCH (22:33)
[2019-09-10] MEDS: IPRATROPIUM/ALBUTEROL 0.5-2.5 MG/3 ML AMPUL NEB SCH ×3 (02:12→14:08)
[2019-09-10] MEDS: VANCOMYCIN HCL 1,000 MG in DEXTROSE 5%-WATER 250 ML IV SCH ×2 (05:12→17:03)
[2019-09-10] MEDS: BUDESONIDE NEB 0.5 MG/2 ML AMPUL NEB SCH (08:22)
[2019-09-10] MEDS: ATORVASTATIN CALCIUM 40 MG TABLET PO SCH (09:53)
[2019-09-10] MEDS: PANTOPRAZOLE SODIUM 40 MG TABLET.DR PO SCH (09:53)
[2019-09-10] MEDS: DOCUSATE SODIUM 100 MG CAPSULE PO SCH ×2 (09:53→17:01)
[2019-09-10] MEDS: METHYLPREDNISOLONE INJ 40 MG/1 ML SDV IV SCH (09:53)
[2019-09-10] MEDS: FENOFIBRATE NANOCRYSTALLIZED 145 MG TABLET PO SCH (09:53)
[2019-09-10] MEDS: LOSARTAN POTASSIUM 50 MG TABLET PO SCH (09:53)
[2019-09-10] MEDS: ASPIRIN 81 MG TABLET, CHEWABLE PO SCH (09:53)
[2019-09-10] MEDS: AMLODIPINE BESYLATE 10 MG TABLET PO SCH (09:53)
[2019-09-10] MEDS: CEFTRIAXONE 2 GM/D5W RTU 2 GM/50 ML RTUPB IV SCH (09:53)
[2019-09-10] MEDS: DILTIAZEM HCL 240 MG CAPSULE.CR PO SCH (09:54)
--- NOTE | 2019-09-10 10:08 | Progress Note ---
Provider Note Provider Note: [facility]ward[facility] Advice Chart reviewed. Patient is a 74-year-old man with atrial fibrillation, hypertension, PVD, hypercholesterolemia, and aortic aneurysm who was admitted due to chest pain and found with MRSA bacteremia and right basilar pneumonia. Blood cultures from 09/02 had MRSA and negative on 09/03. Chest imaging consistent with pneumoina. He clinically had pneumonia with COPD exacerbation responding to steroids and antibiotics. He was on vancomycin and ceftriaxone. No indication for ceftriaxone. TTE was suboptimal in quality, but negative for vegetations. Patient already cleared the blood cultures and already had a PICC line placed to complete 14 days of antibiotics. Patient's vancomycin trough has been subtherapeutic, should keep trough 15-20 and start counting from negative cultures/adeqaute trough. A plan for discharge has already been made. Please call if any questions. Kaylha Roy MD [facility] [phone]
--- NOTE | 2019-09-10 16:11 | PDOC DISCHARGE SUMMARY ---
Impression - Admit/DC Date/PCP Admission Date/Primary Care Provider: 09/04/19 13:28 SHANE GUNN MD Discharge Date: 09/10/19 - Discharge Diagnosis (1) Acute on chronic respiratory failure with hypoxemia Is this a current diagnosis for this admission?: Yes (2) COPD with acute exacerbation Is this a current diagnosis for this admission?: Yes (3) MRSA bacteremia Is this a current diagnosis for this admission?: Yes (4) Pneumonia Is this a current diagnosis for this admission?: Yes - Additional Information Resuscitation Status: Full Code Discharge Diet: Cardiac, Diabetic Discharge Activity: Activity As Tolerated, Balance Activity w/Rest Referrals: SHANE GUNN MD [Primary Care Provider] - 09/14/19 11:00 am Prescriptions: Diltiazem HCl [Cardizem Cd 240 mg Capsule.cr] 240 mg PO DAILY #30 capsule.cr Prednisone [Deltasone 20 mg Tablet] 40 mg PO DAILY #10 tablet Nebulizer [Nebulizer Machine] 1 each MC Q4HP PRN #1 kit PRN Reason: For Wheezing Albuterol Sulfate [Proventil 0.5% Neb 2.5 mg/0.5 ml Vial.neb] 2.5 mg NEB RTQ4HP PRN #120 vial.neb PRN Reason: For Wheezing Tiotropium [place] [Spiriva Respimat] 2 puff IH DAILY #1 mist.inhal Vancomycin HCl [Vancocin Inj 1000 mg Vial] 1,000 mg IV Q12A #20 vial Home Medications: Amlodipine Besylate [Norvasc 10 mg Tablet] 10 mg PO DAILY 09/02/19 Aspirin [Aspirin 81 mg Chewable Tablet] 81 mg PO DAILY 09/02/19 Atorvastatin Calcium [Lipitor 40 mg Tablet] 40 mg PO DAILY 09/02/19 Fenofibrate Nanocrystallized [Tricor 145 mg Tablet] 145 mg PO DAILY 09/02/19 Telmisartan 80 mg PO DAILY 09/02/19 Warfarin Sodium 1.25 mg PO DAILY@1700 09/03/19 Albuterol Sulfate [Proventil 0.5% Neb 2.5 mg/0.5 ml Vial.neb] 2.5 mg NEB RTQ4HP PRN #120 vial.neb 09/10/19 Diltiazem HCl [Cardizem Cd 240 mg Capsule.cr] 240 mg PO DAILY #30 capsule.cr 09/10/19 Nebulizer [Nebulizer Machine] 1 each MC Q4HP PRN #1 kit 09/10/19 Prednisone [Deltasone 20 mg Tablet] 40 mg PO DAILY #10 tablet 09/10/19 Tiotropium Redbird [Spiriva Respimat] 2 puff IH DAILY #1 mist.inhal 09/10/19 Vancomycin HCl [Vancocin Inj 1000 mg Vial] 1,000 mg IV Q12A #20 vial 09/10/19 History of Present Illiness History of Present Illness: ANGELO JOSEPH is a 74 year old male who presented to the emergency room via EMS with acute chest pain. He admits to the sudden onset of severe pain in his central (substernal) chest beginning at noon today while at rest and continuing since that time. The pain is a severe sharp continuous throbbing pressure without radiation. He denies associated or accompanying signs and symptoms. He denies prior similar episodes. He has not identified any aggravating or ameliorating factors for his chest pain. In the emergency room he was found to have an EKG and cardiac enzymes which demonstrated no evidence of acute myocardial ischemia or injury. His chest pain was treated with nitroglycerin and morphine. He was subsequently admitted for further evaluation and treatment on observation status. Hospital Course Hospital Course: He has not been previously diagnosed with COPD, and so we sent him home with Spiriva and a nebulizer. He also had an impressive oxygen requirement, up to 6 L at one point, but we got him down to about 3 L when he was discharged. He responded well to steroids and nebulizer treatments. He did have 1 of his blood cultures turn positive and it turned out to be MRSA. The other culture was negative. We gave him antibiotics for a few days and repeated the cultures and those have been negative thus far. We got an echocardiogram that did not show evidence of valvular vegetations. We got him a PICC line and the plan is to treat him with IV vancomycin for a total of 14 days, with his stop date being September 18, 2019. At that point, he will go back to his doctor's office in 3 to 5 days to have blood cultures redrawn. If those cultures are negative, he can discontinue his PICC line. His labs and examination were reassuring and he was discharged in stable condition. Physical Exam Vital Signs: Temp Pulse Resp BP Pulse Ox 97.3 F 80 16 146/87 H 98 09/10/19 08:11 12/19/19 14:08 09/10/19 14:08 09/10/19 08:11 09/10/19 08:22 Intake & Output 09/09/19 09/10/19 09/11/19 06:59 06:59 06:59 Intake Total 1510 1800 810 Balance 1510 1800 810 Weight 83.8 kg 82.9 kg General appearance: PRESENT: cooperative, disheveled, mild distress Respiratory exam: PRESENT: prolonged expiratory phas, symmetrical. ABSENT: accessory muscle use, chest wall tenderness, crackles, rhonchi, tachypnea, unlabored, wheezes Cardiovascular exam: PRESENT: RRR, +S1, +S2 Pulses: PRESENT: normal carotid pulses Vascular exam: PRESENT: normal capillary refill GI/Abdominal exam: PRESENT: normal bowel sounds, soft. ABSENT: distended, guarding, rebound, tenderness Extremities exam: ABSENT: clubbing, pedal edema Musculoskeletal exam: PRESENT: normal inspection. ABSENT: deformity Neurological exam: PRESENT: alert, awake, oriented to person, oriented to place, oriented to situation Psychiatric exam: PRESENT: anxious Skin exam: PRESENT: dry, warm Results Laboratory Results: WBC 17.4 10^3/uL (4.0-10.5) H 09/09/19 17:49 RBC 3.81 10^6/uL (4.35-5.55) L 09/09/19 17:49 Hgb 11.9 g/dL (13.5-17.0) L 09/09/19 17:49 Hct 36.6 % (37.9-51.0) L 09/09/19 17:49 MCV 96 fl (80-97) 09/09/19 17:49 MCH 31.3 pg (27.0-33.4) 09/09/19 17:49 MCHC 32.6 g/dL (32.0-36.0) 09/09/19 17:49 RDW 13.0 % (11.5-14.0) 09/09/19 17:49 Plt Count 365 10^3/uL (150-450) 09/09/19 17:49 Lymph % (Auto) Not Reportable 09/06/19 05:24 [place] % (Auto) Not Reportable 09/06/19 05:24 Eos % (Auto) Not Reportable 09/06/19 05:24 Baso % (Auto) Not Reportable 09/06/19 05:24 Absolute Neuts (auto) Not Reportable 09/06/19 05:24 Absolute Lymphs (auto) Not Reportable 09/06/19 05:24 Absolute Monos (auto) Not Reportable 09/06/19 05:24 Absolute Eos (auto) Not Reportable 09/06/19 05:24 Absolute Basos (auto) Not Reportable 09/06/19 05:24 Total Counted 100 09/06/19 05:24 Seg Neutrophils % Not Reportable 09/06/19 05:24 Seg Neuts % (Manual) 91 % (42-78) H 09/06/19 05:24 Lymphocytes % (Manual) 2 % (13-45) L 09/06/19 05:24 Monocytes % (Manual) 7 % (3-13) 09/06/19 05:24 Eosinophils % (Manual) 0 % (0-6) 09/06/19 05:24 Basophils % (Manual) 0 % (0-2) 09/06/19 05:24 Abs Neuts (Manual) 13.8 10^3/uL (1.7-8.2) H 09/06/19 05:24 Abs Lymphs (Manual) 0.3 10^3/uL (0.5-4.7) L 09/06/19 05:24 Abs Monocytes (Manual) 1.1 10^3/uL (0.1-1.4) 09/06/19 05:24 Absolute Eos (Manual) 0.0 10^3/uL (0.0-0.6) 09/06/19 05:24 Abs Basophils (Manual) 0.0 10^3/uL (0.0-0.2) 09/06/19 05:24 Toxic Granulation 1+ 09/06/19 05:24 Platelet Comment ADEQUATE 09/06/19 05:24 RBC Morph Comment NORMO-CYTIC/CHROMIC 09/05/19 05:33 PT 27.2 SEC (11.4-15.4) H 09/09/19 05:50 INR 2.47 09/09/19 05:50 D-Dimer 0.48 ug/mL (0.00-0.50) 09/02/19 16:05 Carbonic Acid 0.83 mmol/L (1.05-1.35) L 09/05/19 09:33 HCO3/H2CO3 Ratio 21:1 09/05/19 09:33 ABG pH 7.43 (7.35-7.45) 09/05/19 09:33 ABG pCO2 27.5 mmHg (35-45) L 09/05/19 09:33 ABG pO2 76.9 mmHg (80-100) L 09/05/19 09:33 ABG HCO3 17.6 mmol/L (20-24) L 09/05/19 09:33 ABG Total CO2 18.5 mmol/L (23-27) L 09/05/19 09:33 ABG O2 Saturation 95.9 % (94-98) 09/05/19 09:33 ABG Base Excess -4.9 mmol/L 09/05/19 09:33 FiO2 4 09/05/19 09:33 Sodium 137.6 mmol/L (137-145) 09/06/19 05:24 Potassium 4.4 mmol/L (3.6-5.0) 09/06/19 05:24 Chloride 105 mmol/L (98-107) 09/06/19 05:24 Carbon Dioxide 19 mmol/L (22-30) L 09/06/19 05:24 Anion Gap 14 (5-19) 09/06/19 05:24 BUN 36 mg/dL (7-20) H 09/06/19 05:24 Creatinine 1.59 mg/dL (0.52-1.25) H 09/06/19 05:24 Est GFR ( Amer) 52 (>60) L 09/06/19 05:24 Est GFR (MDRD) Non-Af 43 (>60) L 09/06/19 05:24 Glucose 247 mg/dL (75-110) H 09/06/19 05:24 Calcium 8.9 mg/dL (8.4-10.2) 09/06/19 05:24 Magnesium 2.4 mg/dL (1.6-2.3) H 09/05/19 05:33 Total Bilirubin 1.0 mg/dL (0.2-1.3) 09/02/19 16:05 Direct Bilirubin 0.5 mg/dL (0.0-0.4) H 09/02/19 16:05 Neonat Total Bilirubin Not Reportable 09/02/19 16:05 Neonat Direct Bilirubin Not Reportable 09/02/19 16:05 Neonat Indirect Bili Not Reportable 09/02/19 16:05 AST 47 U/L (17-59) 09/02/19 16:05 ALT 28 U/L (<50) 09/02/19 16:05 Alkaline Phosphatase 68 U/L (38-126) 09/02/19 16:05 Creatine Kinase 243 U/L (55-170) H 09/03/19 15:15 CK-MB (CK-2) 3.90 ng/mL (<4.55) 09/03/19 15:15 Troponin I < 0.012 ng/mL 09/03/19 15:15 NT-Pro-B Natriuret Pep 498 pg/mL (<450) H 09/02/19 16:05 Total Protein 9.8 g/dL (6.3-8.2) H 09/02/19 16:05 Albumin 5.3 g/dL (3.5-5.0) H 09/02/19 16:05 Urine Color YELLOW 09/09/19 20:48 Urine Appearance CLEAR 09/09/19 20:48 Urine pH 6.0 (5.0-9.0) 09/09/19 20:48 Ur Specific [place] 1.022 09/09/19 20:48 Urine Protein NEGATIVE mg/dL (NEGATIVE) 09/09/19 20:48 Urine Glucose (UA) >=500 mg/dL (NEGATIVE) H 09/09/19 20:48 Urine Ketones NEGATIVE mg/dL (NEGATIVE) 09/09/19 20:48 Urine Blood NEGATIVE (NEGATIVE) 09/09/19 20:48 Urine Nitrite NEGATIVE (NEGATIVE) 09/09/19 20:48 Urine Bilirubin NEGATIVE (NEGATIVE) 09/09/19 20:48 Urine Urobilinogen NEGATIVE mg/dL (<2.0) 09/09/19 20:48 Ur Leukocyte Esterase NEGATIVE (NEGATIVE) 09/09/19 20:48 Urine WBC (Auto) 0 /HPF 09/09/19 20:48 Urine RBC (Auto) 0 /HPF 09/09/19 20:48 U Hyaline Cast (Auto) 14 /LPF 09/02/19 20:53 Squamous Epi Cells Auto <1 /HPF 09/04/19 03:10 Urine Mucus (Auto) RARE /LPF 09/09/19 20:48 Urine Ascorbic Acid NEGATIVE (NEGATIVE) 09/09/19 20:48 Time Trough Drawn 0550 09/09/19 05:50 Vancomycin Trough 12.2 ug/mL (5.0-20.0) 09/09/19 05:50 Influenza A (Rapid) NEGATIVE (NEGATIVE) 09/02/19 20:25 Influenza B (Rapid) NEGATIVE (NEGATIVE) 09/02/19 20:25 09/02/19 09/02/19 09/02/19 16:05 16:05 20:25 CK-MB (CK-2) 2.66 Troponin I < 0.012 < 0.012 NT-Pro-B Natriuret Pep 498 H 09/03/19 09/03/19 09/03/19 02:44 08:44 15:15 CK-MB (CK-2) 1.95 2.67 3.90 Troponin I < 0.012 < 0.012 < 0.012 NT-Pro-B Natriuret Pep Impressions: Chest X-Ray 09/02/19 16:46 IMPRESSION: NO ACUTE RADIOGRAPHIC FINDING IN THE CHEST. Guidance Fluoroscopy 09/09/19 00:00 IMPRESSION: SUCCESSFUL PLACEMENT OF A 5 FR DUAL LUMEN 40 CM PICC IN THE LEFT BASILIC VEIN. Interventional Vascular Procedure 09/09/19 00:00 IMPRESSION: SUCCESSFUL PLACEMENT OF A 5 FR DUAL LUMEN 40 CM PICC IN THE LEFT BASILIC VEIN. PICC Line Insertion 09/09/19 00:00 IMPRESSION: SUCCESSFUL PLACEMENT OF A 5 FR DUAL LUMEN 40 CM PICC IN THE LEFT BASILIC VEIN. Plan Time Spent: Greater than 30 Minutes Stroke Is this a Stroke Patient?: No Acute Heart Failure - Is this a Heart Failure Patient?: No
[2019-09-10 16:46] VITALS: BP 150/82
== END 2019-09-10 19:30 | disposition home health service (06) | DRG 177 ==
LOC: ER 16:44 → EH 23:52 → INTOOBSV 23:52 → 4N 09-03 00:59 → OBSVTOIN 09-04 13:28
PROVIDERS: ADMIT Emergency Medicine; ATTEND Emergency Medicine
PROC: 5A09457 Assistance with Respiratory Ventilation, 24-96 Consecutive Hours, Continuous Positive Airway Pressure (ICD-10-PCS; 2019-09-06)
PROC: 02HV33Z Insertion of Infusion Device into Superior Vena Cava, Percutaneous Approach (ICD-10-PCS; principal; 2019-09-09)
PROC: B548ZZA Ultrasonography of Superior Vena Cava, Guidance (ICD-10-PCS; 2019-09-09)
DX: J15.212 Pneumonia due to Methicillin resistant Staphylococcus aureus (principal); J96.21 Acute and chronic respiratory failure with hypoxia; I48.20 Chronic atrial fibrillation, unspecified; R78.81 Bacteremia; J43.9 Emphysema, unspecified; R79.1 Abnormal coagulation profile; E78.5 Hyperlipidemia, unspecified; I73.9 Peripheral vascular disease, unspecified; B95.62 Methicillin resistant Staphylococcus aureus infection as the cause of diseases classified elsewhere; Z79.82 Long term (current) use of aspirin; Z79.899 Other long term (current) drug therapy; Z95.820 Peripheral vascular angioplasty status with implants and grafts; Z87.891 Personal history of nicotine dependence; Z83.3 Family history of diabetes mellitus; Z82.49 Family history of ischemic heart disease and other diseases of the circulatory system; Z79.01 Long term (current) use of anticoagulants
CPT/HCPCS: 36415; 36569; 36600; 71045; 76937; 77001; 80048; 80053; 80202; 81001; 82550; 82553; 82565; 82803; 83735; 83880; 84484; 85025; 85027; 85379; 85610; 87040; 87077; 87150; 87186; 87804; 93005; 93010; 93306; 94640; 94660; 94667; 94799; 96365; 96375; 99285; C9113; G0378; J0696; J1642; J1940; J2270; J2405; J2920; J3370; J3490; J7030; J7060; J7614; J7620

== ENCOUNTER → 2019-09-22 | Outpatient (CLI) | payer MEDICARE, OTHER | LOC: LCAL 17:43 | PROVIDERS: ATTEND Family Medicine | DX: J15.212 Pneumonia due to Methicillin resistant Staphylococcus aureus (principal) | CPT/HCPCS: 87040 ==

== ENCOUNTER → 2019-11-16 | Outpatient (CLI) | payer MEDICARE, OTHER ==
--- NOTE | 2019-11-16 14:33 | RADIOLOGY REPORT (SQ) ---
EXAM DESCRIPTION: CT CHEST WITHOUT COMPLETED DATE/TIME: 11/16/2019 1:34 pm REASON FOR STUDY: J43.1 PANLOBULAR EMPHYSEMA J43.1 PANLOBULAR EMPHYSEMA COMPARISON: None. TECHNIQUE: CT scan performed of the chest without intravenous contrast. Images reviewed with lung, soft tissue and bone windows. Reconstructed coronal and sagittal MPR images reviewed. All images st ored on PACS. All CT scanners at this facility use dose modulation, iterative reconstruction, and/or weight based d osing when appropriate to reduce radiation dose to as low as reasonably achievable (ALARA). [facility]: Dose Right [facility]: CareDose [facility]: Dose Right [facility]: Teradose 4D [facility]: Smart [employer] RADIATION DOSE: CT Rad equipment meets quality standard of care and radiation dose reduction techniq ues were employed. CTDIvol: 9.2 mGy. DLP: 363 mGy-cm. mGy. LIMITATIONS: No technical limitations. FINDINGS: LUNGS AND PLEURA: There is mild centrilobular emphysema. Small calcified pleural nodules are seen. Small calcified granuloma in the left upper lobe. No significant pulmonary masses. No pl eural effusion. HILAR AND MEDIASTINAL STRUCTURES: Small nonspecific mediastinal nodes are present. No true adenopath y. HEART AND VASCULAR STRUCTURES: No aneurysm. No pericardial effusion. Coronary atherosclerosis. UPPER ABDOMEN: No significant findings. Limited exam. THYROID AND OTHER SOFT TISSUES: No masses. No adenopathy. BONES: No significant finding. HARDWARE: None in the chest. OTHER: No other significant findings. IMPRESSION: Pulmonary emphysema. Nonspecific mediastinal nodes. Coronary atherosclerosis. No acut e findings in the thorax. TECHNICAL DOCUMENTATION: JOB ID: [id number] Quality ID # [id number]: Final reports with documentation of one or more dose reduction techniques (e.g., Au tomated exposure control, adjustment of the mA and/or kV according to patient size, use of iterative reconstruction technique) 2010 [employer]- All Rights Reserved Reading location - IP/workstation name: [email or web address]
== END ==
LOC: RAD 13:14
PROVIDERS: ATTEND Registered Nurse
DX: J43.1 Panlobular emphysema (principal); I25.10 Atherosclerotic heart disease of native coronary artery without angina pectoris
CPT/HCPCS: 71250